=== PATIENT | female | born 1965 | race Caucasian/White ===

== ENCOUNTER → 2018-01-13 | Outpatient (REF) | payer BC ==
[2018-01-16 00:06] LABS: Lyme Disease IgG/IgM Antibodie <0.91 ISR (0.00-0.90); Lyme Disease IgM Ab Quantitati <0.80 index (0.00-0.79)
== END ==
LOC: M LAB REF 12:55
DX: A69.20 Lyme disease, unspecified (principal)

== ENCOUNTER 2018-01-30 16:05 | Inpatient (IN) | payer BC ==
[2018-01-30] MEDS ORDERED: MOM 30ML SUSPENSION UDC PO (22:00)
[2018-01-30] MEDS: GABAPENTIN 100 MG CAP PO (23:17)
[2018-01-30] MEDS: SERTRALINE HCL 25 MG TABLET PO (23:18)
[2018-01-31] MEDS: MAALOX 30 ML SUSP *UDC PO (00:18)
[2018-01-31] MEDS: ALPRAZolam 0.5 MG TAB PO (00:43)
[2018-01-31] MEDS: ACETAMINOPHEN TAB 650MG DOSE (2X325MG) PO ×2 (03:04→11:53)
[2018-01-31] MEDS: LEVOTHYROXINE 88MCG TABLET (0.088 MG) PO ×2 (06:00→06:31)
[2018-01-31] MEDS: SERTRALINE HCL 25 MG TABLET PO (09:00)
[2018-01-31] MEDS: hydrOXYzine 25 MG TAB PO (09:00)
[2018-01-31] MEDS: FLUTICASONE PROP 0.05% NASAL SPRAY 16 GM (FLONASE) (10:12)
[2018-01-31] MEDS: GABAPENTIN 100 MG CAP PO ×3 (10:13→22:32)
[2018-01-31] MEDS: LIDOCAINE 5% (LIDODERM) PATCH TD (10:13)
[2018-01-31] MEDS: OMEPRAZOLE 20 MG CAP PO (16:28)
[2018-01-31] MEDS: **NOTE PATIENT COMMENT** MISC XX (21:00)
[2018-01-31] MEDS: zolPIDEM TARTRATE 5 MG TAB PO (22:33)
[2018-02-01] MEDS: LEVOTHYROXINE 88MCG TABLET (0.088 MG) PO (05:46)
[2018-02-01] MEDS ORDERED: ENTER DRUG NAME HERE (PATIENT'S OWN MED) PO (09:00)
[2018-02-01] MEDS: OMEPRAZOLE 20 MG CAP PO (09:39)
[2018-02-01] MEDS: GABAPENTIN 100 MG CAP PO ×3 (09:39→21:54)
[2018-02-01] MEDS: hydrOXYzine 25 MG TAB PO (09:39)
[2018-02-01] MEDS: DULoxetine 30 MG CAP (CYMBALTA) PO (09:39)
[2018-02-01] MEDS: LIDOCAINE 5% (LIDODERM) PATCH TD (09:42)
[2018-02-01] MEDS: FLUTICASONE PROP 0.05% NASAL SPRAY 16 GM (FLONASE) (09:42)
[2018-02-01] MEDS: clonazePAM 1 MG TAB PO (16:30)
[2018-02-01] MEDS: **NOTE PATIENT COMMENT** MISC XX (21:00)
[2018-02-01] MEDS: zolPIDEM TARTRATE 5 MG TAB PO (21:54)
[2018-02-02] MEDS: LEVOTHYROXINE 88MCG TABLET (0.088 MG) PO (06:03)
[2018-02-02] MEDS: FLUTICASONE PROP 0.05% NASAL SPRAY 16 GM (FLONASE) (09:00)
[2018-02-02] MEDS: LIDOCAINE 5% (LIDODERM) PATCH TD (09:00)
[2018-02-02] MEDS: hydrOXYzine 25 MG TAB PO (09:15)
[2018-02-02] MEDS: DULoxetine 30 MG CAP (CYMBALTA) PO (09:15)
[2018-02-02] MEDS: OMEPRAZOLE 20 MG CAP PO (09:15)
[2018-02-02] MEDS: GABAPENTIN 100 MG CAP PO ×3 (09:15→20:51)
[2018-02-02] MEDS: LORazepam 1 MG TAB PO (16:30)
[2018-02-02] MEDS: **NOTE PATIENT COMMENT** MISC XX (21:00)
[2018-02-02] MEDS: ALPRAZolam 0.5 MG TAB PO (21:46)
[2018-02-02] MEDS: ACETAMINOPHEN TAB 650MG DOSE (2X325MG) PO (21:46)
[2018-02-03] MEDS: LEVOTHYROXINE 88MCG TABLET (0.088 MG) PO (06:17)
[2018-02-03] MEDS: DULoxetine 30 MG CAP (CYMBALTA) PO (08:02)
[2018-02-03] MEDS: GABAPENTIN 100 MG CAP PO (08:02)
[2018-02-03] MEDS: hydrOXYzine 25 MG TAB PO (08:02)
[2018-02-03] MEDS: OMEPRAZOLE 20 MG CAP PO (08:03)
[2018-02-03] MEDS: FLUTICASONE PROP 0.05% NASAL SPRAY 16 GM (FLONASE) (08:03)
[2018-02-03] MEDS: LIDOCAINE 5% (LIDODERM) PATCH TD (08:03)
[2018-02-03] MEDS ORDERED: hydrOXYzine 25 MG TAB PO (21:00)
== END 2018-02-03 13:45 | disposition home or self-care (01) | DRG 754 ==
LOC: M ED 16:05 → M ED INP 18:49 → M PSY 20:35
DX: F32.9 Major depressive disorder, single episode, unspecified (principal); F41.1 Generalized anxiety disorder; Z79.899 Other long term (current) drug therapy; Z91.040 Latex allergy status; E03.9 Hypothyroidism, unspecified; G47.00 Insomnia, unspecified; M54.5 Low back pain; G89.29 Other chronic pain; J30.9 Allergic rhinitis, unspecified; R10.9 Unspecified abdominal pain

== ENCOUNTER 2018-03-02 15:56 | Inpatient (IN) | payer BC ==
[2018-03-02 17:04] LABS: HEMATOCRIT 41.4 % (36.0-47.0); HEMOGLOBIN 14.4 g/dl (12.0-15.5); MEAN CORPUSCULAR HEMOGLOBIN 32.6 pg (27.0-33.0); MEAN CORPUSCULAR HGB CONC 34.8 g/dl (32.0-36.5); MEAN CORPUSCULAR VOLUME 93.7 fl (80.0-96.0); PLATELET COUNT, AUTOMATED 245 10^3/uL (150-450); RED BLOOD COUNT 4.42 10^6/uL (4.00-5.40); RED CELL DISTRIBUTION WIDTH 11.5 % (11.5-14.5); WHITE BLOOD COUNT 8.7 10^3/uL (4.0-10.0)
[2018-03-02 17:05] LABS: AMPHETAMINES LEVEL URINE NEGATIVE (NEGATIVE); BARBITURATES URINE NEGATIVE (NEGATIVE); BENZODIAZEPINES URINE NEGATIVE (NEGATIVE); CANNABINOIDS URINE NEGATIVE (NEGATIVE); COCAINE METABOLITE URINE NEGATIVE (NEGATIVE); METHADONE URINE NEGATIVE (NEGATIVE); OPIATES URINE NEGATIVE (NEGATIVE); PHENCYCLIDINE URINE NEGATIVE (NEGATIVE)
[2018-03-02 17:13] LABS: ALBUMIN 3.4 GM/DL (3.2-5.2); ALKALINE PHOSPHATASE 73 U/L (45-117); ALT/SGPT 42 U/L (12-78); ANION GAP 9 MEQ/L (8-16); AST/SGOT 28 U/L (7-37); BILIRUBIN,DIRECT 0.2 MG/DL (0.0-0.2); BILIRUBIN,TOTAL 0.4 MG/DL (0.2-1.0); BLOOD UREA NITROGEN 8 MG/DL (7-18); CALCIUM LEVEL 8.1 MG/DL (8.5-10.1); CARBON DIOXIDE LEVEL 26 MEQ/L (21-32); CHLORIDE LEVEL 106 MEQ/L (98-107); CREATININE FOR GFR 0.92 MG/DL (0.55-1.30); GLOMERULAR FILTRATION RATE > 60.0 (>51); GLUCOSE, FASTING 138 MG/DL (70-100); SALICYLATE LEVEL < 1.7 MG/DL (5.0-30.0); SODIUM LEVEL 141 MEQ/L (136-145); TOTAL PROTEIN 6.5 GM/DL (6.4-8.2)
[2018-03-02 17:28] LABS: ACETAMINOPHEN LEVEL < 2.0 UG/ML (10.0-30.0); ETHYL ALCOHOL (ETHANOL) < 0.003 % (0.000-0.010)
[2018-03-02] MEDS: POTASSIUM CHLORIDE 10 MEQ SR TABLET PO (17:35)
[2018-03-02] MEDS ORDERED: MOM 30ML SUSPENSION UDC PO (18:15)
[2018-03-02] MEDS: MAALOX 30 ML SUSP *UDC PO (20:27)
[2018-03-02] MEDS: traZODone 50 MG TAB PO (20:28)
[2018-03-02] MEDS: ACETAMINOPHEN TAB 650MG DOSE (2X325MG) PO (20:29)
[2018-03-03] MEDS: LEVOTHYROXINE 88MCG TABLET (0.088 MG) PO (08:53)
[2018-03-03] MEDS: GABAPENTIN 100 MG CAP PO ×3 (09:00→20:37)
[2018-03-03] MEDS ORDERED: SODIUM CHLORIDE NASAL 0.65% SPRAY BTL (OCEAN) (09:00)
[2018-03-03 10:17] LABS: ANION GAP 10 MEQ/L (8-16); BLOOD UREA NITROGEN 8 MG/DL (7-18); CALCIUM LEVEL 8.4 MG/DL (8.5-10.1); CARBON DIOXIDE LEVEL 24 MEQ/L (21-32); CHLORIDE LEVEL 109 MEQ/L (98-107); GLOMERULAR FILTRATION RATE > 60.0 (>51); GLUCOSE, FASTING 121 MG/DL (70-100); POTASSIUM SERUM 3.9 MEQ/L (3.5-5.1); SODIUM LEVEL 143 MEQ/L (136-145)
[2018-03-03] MEDS: OMEPRAZOLE 20 MG CAP PO (14:33)
[2018-03-03] MEDS: NORTRIPTYLINE 25 MG CAP PO (20:37)
[2018-03-04] MEDS: LEVOTHYROXINE 88MCG TABLET (0.088 MG) PO (06:08)
[2018-03-04] MEDS: GABAPENTIN 100 MG CAP PO (08:40)
[2018-03-04] MEDS: OMEPRAZOLE 20 MG CAP PO (08:41)
[2018-03-04 10:56] LABS: HEMATOCRIT 46.1 % (36.0-47.0); HEMOGLOBIN 16.1 g/dl (12.0-15.5); MEAN CORPUSCULAR HEMOGLOBIN 32.5 pg (27.0-33.0); MEAN CORPUSCULAR HGB CONC 34.9 g/dl (32.0-36.5); MEAN CORPUSCULAR VOLUME 93.1 fl (80.0-96.0); PLATELET COUNT, AUTOMATED 275 10^3/uL (150-450); RED BLOOD COUNT 4.95 10^6/uL (4.00-5.40); RED CELL DISTRIBUTION WIDTH 11.9 % (11.5-14.5); WHITE BLOOD COUNT 7.6 10^3/uL (4.0-10.0)
[2018-03-04 11:20] LABS: ALBUMIN 3.5 GM/DL (3.2-5.2); ALBUMIN/GLOBULIN RATIO 1.06 (1.00-1.93); ALKALINE PHOSPHATASE 79 U/L (45-117); ALT/SGPT 47 U/L (12-78); ANION GAP 8 MEQ/L (8-16); AST/SGOT 23 U/L (7-37); BILIRUBIN,TOTAL 0.3 MG/DL (0.2-1.0); BLOOD UREA NITROGEN 11 MG/DL (7-18); CALCIUM LEVEL 8.7 MG/DL (8.5-10.1); CARBON DIOXIDE LEVEL 27 MEQ/L (21-32); CHLORIDE LEVEL 106 MEQ/L (98-107); CREATININE FOR GFR 0.93 MG/DL (0.55-1.30); GLOMERULAR FILTRATION RATE > 60.0 (>51); GLUCOSE, FASTING 103 MG/DL (70-100); POTASSIUM SERUM 4.1 MEQ/L (3.5-5.1); SODIUM LEVEL 141 MEQ/L (136-145); TOTAL PROTEIN 6.8 GM/DL (6.4-8.2)
[2018-03-04] MEDS: GABAPENTIN 300 MG CAP PO ×2 (15:24→21:36)
[2018-03-04] MEDS: NORTRIPTYLINE 25 MG CAP PO (21:36)
[2018-03-05] MEDS: LEVOTHYROXINE 88MCG TABLET (0.088 MG) PO (06:09)
[2018-03-05] MEDS: OMEPRAZOLE 20 MG CAP PO (08:56)
[2018-03-05] MEDS: GABAPENTIN 300 MG CAP PO ×3 (08:56→20:31)
[2018-03-05] MEDS: MUPIROCIN 2% OINT 22 GM TUBE TOP (16:38)
[2018-03-05] MEDS: NORTRIPTYLINE 25 MG CAP PO (20:30)
[2018-03-06] MEDS: LEVOTHYROXINE 88MCG TABLET (0.088 MG) PO (06:00)
[2018-03-06] MEDS: GABAPENTIN 300 MG CAP PO ×3 (08:57→21:51)
[2018-03-06] MEDS: OMEPRAZOLE 20 MG CAP PO (08:57)
[2018-03-06] MEDS: NORTRIPTYLINE 25 MG CAP PO (21:51)
[2018-03-06] MEDS: traZODone 50 MG TAB PO (21:51)
[2018-03-07] MEDS: LEVOTHYROXINE 88MCG TABLET (0.088 MG) PO (06:50)
[2018-03-07] MEDS: OMEPRAZOLE 20 MG CAP PO (09:00)
[2018-03-07] MEDS: GABAPENTIN 300 MG CAP PO ×2 (09:14→15:50)
[2018-03-07] MEDS: MUPIROCIN 2% OINT 22 GM TUBE TOP (11:01)
== END 2018-03-07 17:00 | disposition home or self-care (01) | DRG 755 ==
LOC: M PSY 03-03 16:17 → M ED 15:56 → M ED INP 18:08 → M PSY 18:56
DX: F45.41 Pain disorder exclusively related to psychological factors (principal); F32.9 Major depressive disorder, single episode, unspecified; M79.7 Fibromyalgia; F43.23 Adjustment disorder with mixed anxiety and depressed mood; Z79.899 Other long term (current) drug therapy; Z91.040 Latex allergy status; F41.9 Anxiety disorder, unspecified; G47.00 Insomnia, unspecified; E03.9 Hypothyroidism, unspecified; J30.9 Allergic rhinitis, unspecified; E87.6 Hypokalemia; R42 Dizziness and giddiness

== ENCOUNTER 2018-04-05 11:03 | Emergency (ER) | payer BC ==
[2018-04-05 11:45] LABS: HEMATOCRIT 43.3 % (36.0-47.0); MEAN CORPUSCULAR HEMOGLOBIN 32.9 pg (27.0-33.0); MEAN CORPUSCULAR HGB CONC 34.6 g/dl (32.0-36.5); PLATELET COUNT, AUTOMATED 286 10^3/uL (150-450); RED BLOOD COUNT 4.56 10^6/uL (4.00-5.40); RED CELL DISTRIBUTION WIDTH 11.7 % (11.5-14.5); WHITE BLOOD COUNT 7.3 10^3/uL (4.0-10.0)
[2018-04-05 12:10] LABS: AMPHETAMINES LEVEL URINE NEGATIVE (NEGATIVE); BARBITURATES URINE NEGATIVE (NEGATIVE); BENZODIAZEPINES URINE NEGATIVE (NEGATIVE); CANNABINOIDS URINE NEGATIVE (NEGATIVE); COCAINE METABOLITE URINE NEGATIVE (NEGATIVE); METHADONE URINE NEGATIVE (NEGATIVE); OPIATES URINE NEGATIVE (NEGATIVE); PHENCYCLIDINE URINE NEGATIVE (NEGATIVE)
[2018-04-05 12:17] LABS: ACETAMINOPHEN LEVEL < 2.0 UG/ML (10.0-30.0); ALBUMIN 3.3 GM/DL (3.2-5.2); ALKALINE PHOSPHATASE 84 U/L (45-117); ALT/SGPT 27 U/L (12-78); ANION GAP 6 MEQ/L (8-16); AST/SGOT 19 U/L (7-37); BILIRUBIN,DIRECT 0.1 MG/DL (0.0-0.2); BILIRUBIN,TOTAL 0.5 MG/DL (0.2-1.0); BLOOD UREA NITROGEN 11 MG/DL (7-18); CALCIUM LEVEL 8.3 MG/DL (8.5-10.1); CARBON DIOXIDE LEVEL 29 MEQ/L (21-32); CHLORIDE LEVEL 106 MEQ/L (98-107); CREATININE FOR GFR 0.78 MG/DL (0.55-1.30); ETHYL ALCOHOL (ETHANOL) < 0.003 % (0.000-0.010); GLOMERULAR FILTRATION RATE > 60.0 (>51); GLUCOSE, FASTING 97 MG/DL (70-100); POTASSIUM SERUM 4.2 MEQ/L (3.5-5.1); SALICYLATE LEVEL < 1.7 MG/DL (5.0-30.0); SODIUM LEVEL 141 MEQ/L (136-145); TOTAL PROTEIN 6.6 GM/DL (6.4-8.2)
== END 2018-04-05 14:51 | disposition home or self-care (01) ==
LOC: M ED 11:03
DX: F32.9 Major depressive disorder, single episode, unspecified (principal); E07.9 Disorder of thyroid, unspecified; J30.9 Allergic rhinitis, unspecified; F41.9 Anxiety disorder, unspecified; G47.00 Insomnia, unspecified; G89.29 Other chronic pain; Z79.899 Other long term (current) drug therapy; Z91.040 Latex allergy status
CPT/HCPCS: G0480

== ENCOUNTER 2018-04-24 04:20 | Emergency (ER) | payer BC ==
[2018-04-24 05:28] LABS: HEMATOCRIT 41.5 % (36.0-47.0); HEMOGLOBIN 14.5 g/dl (12.0-15.5); MEAN CORPUSCULAR HEMOGLOBIN 32.3 pg (27.0-33.0); MEAN CORPUSCULAR HGB CONC 34.9 g/dl (32.0-36.5); MEAN CORPUSCULAR VOLUME 92.4 fl (80.0-96.0); PLATELET COUNT, AUTOMATED 305 10^3/uL (150-450); RED BLOOD COUNT 4.49 10^6/uL (4.00-5.40); RED CELL DISTRIBUTION WIDTH 11.4 % (11.5-14.5); WHITE BLOOD COUNT 13.4 10^3/uL (4.0-10.0)
[2018-04-24 05:48] LABS: AMPHETAMINES LEVEL URINE NEGATIVE (NEGATIVE); BARBITURATES URINE NEGATIVE (NEGATIVE); BENZODIAZEPINES URINE NEGATIVE (NEGATIVE); CANNABINOIDS URINE NEGATIVE (NEGATIVE); COCAINE METABOLITE URINE NEGATIVE (NEGATIVE); METHADONE URINE NEGATIVE (NEGATIVE); OPIATES URINE NEGATIVE (NEGATIVE); PHENCYCLIDINE URINE NEGATIVE (NEGATIVE)
[2018-04-24 06:04] LABS: ACETAMINOPHEN LEVEL < 2.0 UG/ML (10.0-30.0); ALBUMIN 3.4 GM/DL (3.2-5.2); ALBUMIN/GLOBULIN RATIO 1.13 (1.00-1.93); ALKALINE PHOSPHATASE 98 U/L (45-117); ALT/SGPT 19 U/L (12-78); ANION GAP 9 MEQ/L (8-16); AST/SGOT 14 U/L (7-37); BILIRUBIN,DIRECT 0.1 MG/DL (0.0-0.2); BILIRUBIN,TOTAL 0.6 MG/DL (0.2-1.0); BLOOD UREA NITROGEN 6 MG/DL (7-18); CALCIUM LEVEL 8.2 MG/DL (8.5-10.1); CARBON DIOXIDE LEVEL 25 MEQ/L (21-32); CHLORIDE LEVEL 107 MEQ/L (98-107); CREATININE FOR GFR 0.75 MG/DL (0.55-1.30); ETHYL ALCOHOL (ETHANOL) < 0.003 % (0.000-0.010); GLOMERULAR FILTRATION RATE > 60.0 (>51); GLUCOSE, FASTING 109 MG/DL (70-100); POTASSIUM SERUM 3.3 MEQ/L (3.5-5.1); SALICYLATE LEVEL < 1.7 MG/DL (5.0-30.0); SODIUM LEVEL 141 MEQ/L (136-145); TOTAL PROTEIN 6.4 GM/DL (6.4-8.2)
== END 2018-04-24 08:27 | disposition home or self-care (01) ==
LOC: M ED 04:20
DX: G47.00 Insomnia, unspecified (principal); F32.9 Major depressive disorder, single episode, unspecified; F99 Mental disorder, not otherwise specified; Z91.040 Latex allergy status
CPT/HCPCS: 93005

== ENCOUNTER 2018-04-26 17:20 | Inpatient (IN) | payer OTHER, BC ==
[2018-04-26 18:03] LABS: HEMATOCRIT 42.4 % (36.0-47.0); HEMOGLOBIN 15.1 g/dl (12.0-15.5); MEAN CORPUSCULAR HEMOGLOBIN 32.5 pg (27.0-33.0); MEAN CORPUSCULAR HGB CONC 35.6 g/dl (32.0-36.5); MEAN CORPUSCULAR VOLUME 91.2 fl (80.0-96.0); PLATELET COUNT, AUTOMATED 320 10^3/uL (150-450); RED BLOOD COUNT 4.65 10^6/uL (4.00-5.40); RED CELL DISTRIBUTION WIDTH 11.4 % (11.5-14.5); WHITE BLOOD COUNT 10.9 10^3/uL (4.0-10.0)
[2018-04-26 18:49] LABS: CALCIUM OXALATE CRYSTALS RFX SMALL; KETONE, URINE AUTO RFX 1+ mg/dL (NEGATIVE); MUCUS, URINE RFX LARGE (NEGATIVE); NITRITE, URINE AUTO RFX NEGATIVE (NEGATIVE); RBC, URINE AUTO RFX 3 /HPF (0-3); SPECIFIC GRAVITY UR AUTO RFX 1.026 (1.002-1.035); SQUAM EPITHELIAL CELL UR AURFX 11 /HPF (0-6)
[2018-04-26 19:23] LABS: AMPHETAMINES LEVEL URINE NEGATIVE (NEGATIVE); BARBITURATES URINE NEGATIVE (NEGATIVE); BENZODIAZEPINES URINE NEGATIVE (NEGATIVE); CANNABINOIDS URINE NEGATIVE (NEGATIVE); COCAINE METABOLITE URINE NEGATIVE (NEGATIVE); METHADONE URINE NEGATIVE (NEGATIVE); OPIATES URINE NEGATIVE (NEGATIVE); PHENCYCLIDINE URINE NEGATIVE (NEGATIVE)
[2018-04-26 19:26] LABS: ACETAMINOPHEN LEVEL < 2.0 UG/ML (10.0-30.0); ALBUMIN 3.3 GM/DL (3.2-5.2); ALBUMIN/GLOBULIN RATIO 1.03 (1.00-1.93); ALKALINE PHOSPHATASE 92 U/L (45-117); ALT/SGPT 20 U/L (12-78); ANION GAP 16 MEQ/L (8-16); AST/SGOT 24 U/L (7-37); BILIRUBIN,DIRECT 0.1 MG/DL (0.0-0.2); BILIRUBIN,TOTAL 0.3 MG/DL (0.2-1.0); BLOOD UREA NITROGEN 12 MG/DL (7-18); CALCIUM LEVEL 8.6 MG/DL (8.5-10.1); CARBON DIOXIDE LEVEL 21 MEQ/L (21-32); CHLORIDE LEVEL 106 MEQ/L (98-107); CREATININE FOR GFR 0.88 MG/DL (0.55-1.30); ETHYL ALCOHOL (ETHANOL) < 0.003 % (0.000-0.010); GLOMERULAR FILTRATION RATE > 60.0 (>51); GLUCOSE, FASTING 140 MG/DL (70-100); POTASSIUM SERUM 3.5 MEQ/L (3.5-5.1); SALICYLATE LEVEL < 1.7 MG/DL (5.0-30.0); SODIUM LEVEL 143 MEQ/L (136-145); TOTAL PROTEIN 6.5 GM/DL (6.4-8.2)
[2018-04-26 19:44] LABS: LEUKOCYTE ESTERASE UR AUTO RFX 3+ (NEGATIVE); WBC, URINE AUTO RFX 48 /HPF (0-3)
[2018-04-26] MEDS ORDERED: ACETAMINOPHEN TAB 650MG DOSE (2X325MG) PO (21:15)
[2018-04-26] MEDS ORDERED: MAALOX 30 ML SUSP *UDC PO (21:15)
[2018-04-26] MEDS ORDERED: MOM 30ML SUSPENSION UDC PO (21:15)
[2018-04-26] MEDS: NITROFURANTOIN (MACROBID) 100 MG CAP PO (21:25)
[2018-04-26] MEDS: zolPIDEM TARTRATE 10MG TAB PO (23:36)
[2018-04-27] MEDS: LEVOTHYROXINE 88MCG TABLET (0.088 MG) PO (06:18)
[2018-04-27] MEDS: NITROFURANTOIN (MACROBID) 100 MG CAP PO ×2 (09:00→23:12)
[2018-04-27] MEDS ORDERED: OLANZapine ORAL DISINTEGRATING TAB 5MG As Ordered (12:26)
[2018-04-27] MEDS: OLANZapine ORAL DISINTEGRATING TAB 5MG PO (12:28)
[2018-04-27] MEDS: PALIPERIDONE 3 MG ER TAB (INVEGA) PO (23:11)
[2018-04-28] MEDS: OLANZapine ORAL DISINTEGRATING TAB 5MG PO ×2 (03:04→22:00)
[2018-04-28] MEDS: LEVOTHYROXINE 88MCG TABLET (0.088 MG) PO (06:19)
[2018-04-28 07:40] LABS: HEMATOCRIT 43.3 % (36.0-47.0); HEMOGLOBIN 14.8 g/dl (12.0-15.5); MEAN CORPUSCULAR HEMOGLOBIN 32.4 pg (27.0-33.0); MEAN CORPUSCULAR HGB CONC 34.2 g/dl (32.0-36.5); MEAN CORPUSCULAR VOLUME 94.7 fl (80.0-96.0); PLATELET COUNT, AUTOMATED 306 10^3/uL (150-450); RED BLOOD COUNT 4.57 10^6/uL (4.00-5.40); RED CELL DISTRIBUTION WIDTH 11.9 % (11.5-14.5); WHITE BLOOD COUNT 6.8 10^3/uL (4.0-10.0)
[2018-04-28] MEDS: NITROFURANTOIN (MACROBID) 100 MG CAP PO ×3 (08:55→22:00)
[2018-04-28] MEDS: PALIPERIDONE 3 MG ER TAB (INVEGA) PO ×2 (08:55→12:03)
[2018-04-28] MEDS: PALIPERIDONE 6 MG ER TAB (INVEGA) PO (22:00)
[2018-04-29] MEDS: LEVOTHYROXINE 88MCG TABLET (0.088 MG) PO (06:16)
[2018-04-29] MEDS: PALIPERIDONE 3 MG ER TAB (INVEGA) PO (09:47)
[2018-04-29] MEDS: NITROFURANTOIN (MACROBID) 100 MG CAP PO ×2 (09:47→20:25)
[2018-04-29] MEDS: PALIPERIDONE 6 MG ER TAB (INVEGA) PO (20:25)
[2018-04-29] MEDS: OLANZapine ORAL DISINTEGRATING TAB 5MG PO (20:26)
[2018-04-30] MEDS: LEVOTHYROXINE 88MCG TABLET (0.088 MG) PO (06:26)
[2018-04-30] MEDS: PALIPERIDONE 3 MG ER TAB (INVEGA) PO ×2 (09:00→20:29)
[2018-04-30] MEDS: NITROFURANTOIN (MACROBID) 100 MG CAP PO ×2 (09:00→20:29)
[2018-04-30 12:42] LABS: BEDSIDE GLUCOSE 178 MG/DL (70-105)
[2018-05-01] MEDS: LEVOTHYROXINE 88MCG TABLET (0.088 MG) PO (06:14)
[2018-05-01] MEDS: NITROFURANTOIN (MACROBID) 100 MG CAP PO ×2 (09:37→20:31)
[2018-05-01] MEDS: PALIPERIDONE 3 MG ER TAB (INVEGA) PO (20:31)
[2018-05-01] MEDS ORDERED: ENTER DRUG NAME HERE (PATIENT'S OWN MED) (21:00)
[2018-05-01] MEDS: OXYMETAZOLINE NASAL SPRAY (AFRIN) (21:11)
[2018-05-02] MEDS: LEVOTHYROXINE 88MCG TABLET (0.088 MG) PO (06:42)
[2018-05-02] MEDS: OXYMETAZOLINE NASAL SPRAY (AFRIN) ×2 (08:25→20:32)
[2018-05-02] MEDS: NITROFURANTOIN (MACROBID) 100 MG CAP PO ×2 (08:25→20:32)
[2018-05-02] MEDS: DOXEPIN 25 MG CAP PO (20:32)
[2018-05-02] MEDS: PALIPERIDONE 6 MG ER TAB (INVEGA) PO (20:32)
[2018-05-03] MEDS: LEVOTHYROXINE 88MCG TABLET (0.088 MG) PO (06:09)
[2018-05-03] MEDS: OXYMETAZOLINE NASAL SPRAY (AFRIN) ×2 (09:18→20:45)
[2018-05-03] MEDS: NITROFURANTOIN (MACROBID) 100 MG CAP PO ×2 (09:18→20:44)
[2018-05-03] MEDS ORDERED: guaiFENesin SYRUP 200 MG/10 ML UDC PO (11:45)
[2018-05-03] MEDS: DOXEPIN 25 MG CAP PO (20:44)
[2018-05-03] MEDS: PALIPERIDONE 6 MG ER TAB (INVEGA) PO (20:45)
[2018-05-03] MEDS: PALIPERIDONE PALMITATE 234 MG/1.5 ML INJ (INVEGA SUSTENNA)(J2426) IM (21:05)
[2018-05-04] MEDS: LEVOTHYROXINE 88MCG TABLET (0.088 MG) PO (06:16)
[2018-05-04] MEDS: OXYMETAZOLINE NASAL SPRAY (AFRIN) ×2 (09:34→21:11)
[2018-05-04] MEDS: PALIPERIDONE PALMITATE 234 MG/1.5 ML INJ (INVEGA SUSTENNA)(J2426) IM (12:25)
[2018-05-04] MEDS: DOXEPIN 25 MG CAP PO (21:11)
[2018-05-04] MEDS: PALIPERIDONE 6 MG ER TAB (INVEGA) PO (21:11)
[2018-05-05] MEDS: LEVOTHYROXINE 88MCG TABLET (0.088 MG) PO (06:08)
[2018-05-05] MEDS: OXYMETAZOLINE NASAL SPRAY (AFRIN) ×2 (08:34→22:34)
[2018-05-05] MEDS: OLANZapine ORAL DISINTEGRATING TAB 5MG PO (22:34)
[2018-05-06] MEDS: LEVOTHYROXINE 88MCG TABLET (0.088 MG) PO (06:00)
[2018-05-06] MEDS: OXYMETAZOLINE NASAL SPRAY (AFRIN) ×3 (08:56→20:59)
[2018-05-07] MEDS: LEVOTHYROXINE 88MCG TABLET (0.088 MG) PO (06:17)
[2018-05-07] MEDS: OXYMETAZOLINE NASAL SPRAY (AFRIN) ×2 (08:04→21:22)
[2018-05-08] MEDS: LEVOTHYROXINE 88MCG TABLET (0.088 MG) PO (06:25)
[2018-05-08] MEDS: OXYMETAZOLINE NASAL SPRAY (AFRIN) ×2 (08:34→21:16)
[2018-05-08] MEDS: PALIPERIDONE PALMITATE 156 MG/1ML INJ(INVEGA SUSTENNA)(J2426) IM (10:38)
[2018-05-08] MEDS: OLANZapine ORAL DISINTEGRATING TAB 5MG PO (21:16)
[2018-05-09] MEDS: LEVOTHYROXINE 88MCG TABLET (0.088 MG) PO (06:01)
[2018-05-09] MEDS: OXYMETAZOLINE NASAL SPRAY (AFRIN) (09:48)
== END 2018-05-09 15:55 | disposition home or self-care (01) | DRG 750 ==
LOC: M ED 17:20 → M ED INP 21:10 → M PSY 23:15
DX: F25.0 Schizoaffective disorder, bipolar type (principal); E03.9 Hypothyroidism, unspecified; F42.9 Obsessive-compulsive disorder, unspecified; Z91.040 Latex allergy status; G47.00 Insomnia, unspecified; G89.29 Other chronic pain; F41.9 Anxiety disorder, unspecified; M54.5 Low back pain; J30.9 Allergic rhinitis, unspecified; D72.829 Elevated white blood cell count, unspecified; Z79.899 Other long term (current) drug therapy

== ENCOUNTER 2018-07-20 16:31 | Inpatient (IN) | payer BC ==
[~2018-07-20] VITALS: Ht 167.6 cm; Wt 56.6 kg
[~2018-07-20 16:31] MED LIST: ALBU17IN INH; ALPR0.5T3 PO; AMBI10TA PO; AMBI5TAB PO; BENA25CA4 PO; DULO30CA PO; EPIP0.3I2 IM; GABA-1171 PO; GABA-843 PO; HYDR-3363 PO; INVE234I IM; LEVO88TA3; LEVO88TA3 PO; LYRI75CA; MOME50SP2 NARES; MOTR200T44 PO; NORT25CA2 PO; PATIENT COMMENTS; PERCOCET PO; SERT25TA PO; SERT25TA88 PO; TRAZO50TA PO; ZOLP12.515 PO; ZYPR5TAB2 PO; [UNRECOGNIZED DRUG - CODE] PO; [UNRECOGNIZED DRUG - OTHER] OR; [UNRECOGNIZED DRUG - REMARK] OR; allergy shots; epipen
[2018-07-20 17:23] LABS: HEMATOCRIT 47.6 % (36.0-47.0); HEMOGLOBIN 15.7 g/dl (12.0-15.5); MEAN CORPUSCULAR HEMOGLOBIN 31.4 pg (27.0-33.0); MEAN CORPUSCULAR VOLUME 95.2 fl (80.0-96.0); PLATELET COUNT, AUTOMATED 291 10^3/uL (150-450); WHITE BLOOD COUNT 9.1 10^3/uL (4.0-10.0)
[2018-07-20 17:48] LABS: HCG, SERUM QUALITATIVE NEGATIVE (NEGATIVE)
[2018-07-20 17:55] LABS: AMPHETAMINES LEVEL URINE NEGATIVE (NEGATIVE); BARBITURATES URINE NEGATIVE (NEGATIVE); BENZODIAZEPINES URINE NEGATIVE (NEGATIVE); CANNABINOIDS URINE NEGATIVE (NEGATIVE); COCAINE METABOLITE URINE NEGATIVE (NEGATIVE); METHADONE URINE NEGATIVE (NEGATIVE); OPIATES URINE NEGATIVE (NEGATIVE); PHENCYCLIDINE URINE NEGATIVE (NEGATIVE)
[2018-07-20 18:04] LABS: ACETAMINOPHEN LEVEL < 2.0 UG/ML (10.0-30.0); ALBUMIN 3.6 GM/DL (3.2-5.2); ALT/SGPT 22 U/L (12-78); BILIRUBIN,DIRECT 0.1 MG/DL (0.0-0.2); BILIRUBIN,TOTAL 0.3 MG/DL (0.2-1.0); BLOOD UREA NITROGEN 12 MG/DL (7-18); CALCIUM LEVEL 8.6 MG/DL (8.5-10.1); CARBON DIOXIDE LEVEL 26 MEQ/L (21-32); CHLORIDE LEVEL 104 MEQ/L (98-107); CREATININE FOR GFR 0.84 MG/DL (0.55-1.30); ETHYL ALCOHOL (ETHANOL) < 0.003 % (0.000-0.010); GLOMERULAR FILTRATION RATE > 60.0 (>51); GLUCOSE, FASTING 103 MG/DL (70-100); SALICYLATE LEVEL < 1.7 MG/DL (5.0-30.0); SODIUM LEVEL 140 MEQ/L (136-145); TOTAL PROTEIN 6.9 GM/DL (6.4-8.2)
[2018-07-20] MEDS ORDERED: LORazepam 1 MG TAB PO STA (19:34)
[2018-07-20] MEDS ORDERED: INVE234I IM (19:34)
[2018-07-20] MEDS ORDERED: MAALOX 30 ML SUSP *UDC PO PRN (20:30)
[2018-07-20] MEDS ORDERED: ACETAMINOPHEN TAB 650MG DOSE (2X325MG) PO PRN (20:30)
[2018-07-20] MEDS: SERTRALINE HCL 25 MG TABLET PO SCH (21:00)
[2018-07-20] MEDS ORDERED: ARIPiprazole 2 MG TAB PO SCH (21:00)
[2018-07-20 23:20] VITALS: BP 95/67
--- NOTE | 2018-07-21 09:47 | HPEPDOC ---
[facility] Medical History & Physical Date of Admission Jul 20, 2018 History and Physical PCP: Dr Patiño ATTENDING: Dr. Georgina Paul HPI: 53yoF admitted to [facility] for unspecified psychotic disorder, being medically examined today. No acute medical complaints today. Denies any fevers, chills, weakness, fatigue, PACK, CP, SOB, cough, palpitations, abdominal pain, N/V/D or changes in bowel or bladder habits PMHx: Depression Anxiety Insomnia Chronic pain Chronic back pain Hypothyroid Allergic rhinitis PSHX: Hysterectomy Cholecystectomy, history of chronic abdominal pain since surgery. Thyroid surgery Colonoscopy 12/06/17. SOCHX: Resides in: [facility] Marital Status: Kids: 1 Employment: Unemployed Tobacco use: Denies ETOH: Denies Illicit Drugs: Denies IV Drug Use: Denies Tattoos done unprofessionally: Denies FAMHX: Mother: Alive, DM Father: Alive, DM, colon cancer Siblings: 2 brothers, one sister Alive, well Children: Alive, well Unexpected deaths due to medical reasons: None. PE: GEN: 53 yo F, appears stated age. Well-nourished, well developed. No acute distress. Alert and oriented x 3. Flat affect, avoids eye contact. HEENT: Normocephalic, atraumatic. Pupils are equal, round, and reactive to light. Extraocular movements are intact. No nystagmus appreciated. Sclera are nonicteric. Conjunctiva without injection. Nose midline. Nasal turbinates without bogginess. EACs both patent BL. TMs both visualized and casey with good cone of light, no bulging or erythema. No facial asymmetry. Moist mucous membranes. Dentition fair. Pharynx pink and moist, no cobblestoning. Neck supple, trachea midline. No lymphadenopathy or thyromegaly appreciated. CHEST: Regular rate and rhythm, +S1, +S2 LUNGS: Clear to auscultation bilaterally. No wheezes, rales, or rhonchi. Breathing appears symmetric and easy. Patient is speaking in full sentences. No accessory muscle use. ABD: Round, soft, non-tender, non-distended. +Bowel sounds throughout. No rebound or guarding. No costovertebral angle tenderness. EXT: Pulses 2+ bilaterally dorsalis pedis and radial. No lower extremity edema appreciated. SKIN: Railroad, dry, warm. Capillary refill <2sec. No rashes. NEURO: Alert and oriented x 3. Cranial nerves III-XII are intact. No focal deficits appreciated. EKG: SINUS TACHYCARDIA ABNORMAL RHYTHM ECG NSTTW ABNORMALITY INCREASED RATE 04/24/18 Electronically Signed On 04-27-2018 14:03:19 EDT by Jenifer Vargas A&P: 53yoF admitted to [facility] for unspecified psychotic disorder, 1. Psych. Plan per Psychiatry. EKG on file. 2.Hypothyroid. Continue Synthroid 88 g daily. TSH is noted within normal limits. 4. Follow up with PCP on discharge. 5. Staff member Angeles MASTERSON present throughout exam. Vital Signs Vital Signs Date Time Temp Pulse Resp B/P (MAP) Pulse Ox O2 Delivery O2 Flow Rate FiO2 07/20/18 23:20 98.7 103 14 95/67 (76) 97 Room Air Laboratory Data Labs 24H Laboratory Tests 2 07/20/18 17:05: Nucleated Red Blood Cells % (auto) 0.0, Anion Gap 10, Glomerular Filtration Rate > 60.0, Calcium Level 8.6, Aspartate Amino Transf (AST/SGOT) 18, Alanine Aminotransferase (ALT/SGPT) 22, Alkaline Phosphatase 87, Total Bilirubin 0.3, Direct Bilirubin 0.1, Total Protein 6.9, Albumin 3.6, Albumin/Globulin Ratio 1.09, Thyroid Stimulating Hormone (TSH) 2.330, Human Chorionic Gonadotropin, Qual NEGATIVE, Salicylates Level < 1.7L, Urine Amphetamines Screen NEGATIVE, Urine Benzodiazepines Screen NEGATIVE, Urine Opiates Screen NEGATIVE, Urine Methadone Screen NEGATIVE, Acetaminophen Level < 2.0L, Urine Barbiturates Screen NEGATIVE, Urine Phencyclidine Screen NEGATIVE, Urine Cocaine Metabolite Screen NEGATIVE, Urine Cannabinoids Screen NEGATIVE, Ethyl Alcohol Level < 0.003 CBC/BMP Laboratory Tests 07/20/18 17:05 Red Blood Count 5.00, Mean Corpuscular Volume 95.2, Mean Corpuscular Hemoglobin 31.4, Mean Corpuscular Hemoglobin Concent 33.0, Red Cell Distribution Width 11.9 Home Medications Scheduled Levothyroxine Sodium (Synthroid) 88 Mcg Tab, 88 MCG PO DAILY Paliperidone Palmitate (Invega Sustenna) 234 Mg/1.5 Ml Inj, 234 MG IM QMONTH Allergies Coded Allergies: Latex (Verified Allergy, Unknown, ?, 04/04/14) Leelee Whipple Jul 21, 2018 09:47
[2018-07-21] MEDS: LEVOTHYROXINE 88MCG TABLET (0.088 MG) PO SCH (11:12)
--- NOTE | 2018-07-21 11:21 | MHHPEPDOC ---
General Date Of Admission: Jul 20, 2018 Legal Status: 9.39 Chief Complaint "I was just looking at the water." History of Present Illness HISTORY OF THE PRESENT ILLNESS: Patient is a 53 -year-old , female, with a history of schizoaffective d/o and multiple admissions [facility] d/c 05/09/18 after 2wk stay who was brought to ED by [employer] that were called by the pt's mother b/c her bother saw her standing on a bridge and place one foot over the railing. [employer] found pt on the the bridge and per ED she told them she was suicidal. When pt arrived to the ED she denied SI/HI and stated "I was just looking at the water." Pt also reported by family to have recently told her that she had saved some money she was planning on leaving him. Pt's family believe that pt is struggling due to loss of job earlier this year causing finances to be limited for Mariah. Pt seen and appears improved from last admission especially regarding anxiety and psychosis. Does appear very flat but she states she feels good although notices that her emotions are "very mellow." States her family are concerned and they are considering changing her to abilify [facility] outpatient due to it. Pt has tried abilify in the past which has shown to not be beneficial for dunia/psychosis so would not recommend this but rather a decrease in her invega sustenna monthly dose to 156mg which pt agrees may be beneficial as she does feel her current med is beneficial. Denies depression and anxiety and states that student development specialist asked her about when she was last suicidal and she told them of time prior to her last admission. Denies current SI/HI and again states she was just trying to look at the water in the park. States her family watch her every move which she finds annoying. States she saved money to help her with bills no as an inheritance. States her got a new job and finances have been better. Agreeable to trying zoloft in conjunction with invega sustenna to see if combination beneficial for mood, flat affect, depression. Denies SI/HI, hallucinations, delusions. Feels safe here. Psychiatric Review of Systems Depression (2 or more weeks): depressed mood, feelings of excess/guilt (guilt), suicidal thoughts Dunia (4 or more days of): denies Psychosis: denies PTSD: denies Anxiety: gen/non-specific anxiety, situational anxiety, stressor related anxiety, panic attacks Past Psychiatric History Previous Psychiatric Diagnosis: schizoaffective d/o with dunia and psychosis Previous Psychiatric Admissions: [facility] 03/07/18 and 05/09/18 for SI Suicide Attempts: denies Psychiatric Follow-[facility]: [facility] Psychiatric medications: invega sustenna, zoloft Past Medical History Medical Problems Medical Problems Hypothyroidism Head Injury: No Seizures: No Hospitalizations: Yes Surgeries: Gallbladder removed, appendectomy, thyroidectomy, hysterectomy, C- section Head Injury: No Seizures: No Hospitalizations: Yes Surgeries: Yes Family Medical/Psychiatric HX Medical Problems Medical Problems Hypertension, diabetes Psychiatric Disorders: Brother and sister, stayed at [facility] but only for one day/night Psychiatric Disorders: Yes Addiction: No Suicide Attemps/Completions: No Psychiatric Disorders: Yes Addiction: No Suicide Attemps/Completions: No Addiction History denies Social History Childhood: As per previous documents: "Chichi stated she was a "happy camper". She reports that she had a very good life and a very loving home. She reports that her father did drink on the weekends but was not an alcoholic. She reports that he was "salvador" but that he was never abusive." She has siblings. Abuse/Trauma: Denies Current Living Situation: Lives with Education: College education. Employment: Unemployed, her is employed Social Support: Her Legal: Denies Marital: /common law, has lived with his sob for 34 years and she has a 28 year old child Mental Status Examination General Appearance: unkempt, disheveled, appears stated age, hospital scubs/clothing Build: average Demeanor: average, guarded Eye Contact: average Activity: average Behavior: cooperative Speech: clear, spontaneous, normal volume, reg/rate,rhythm,volume Mood: euthymic Mood "good" Affect: constricted, flat, incongruent Thought Process: logical/linear, concrete, depressed, intact Thought Content (Delusions): none reported, denies SI, HI, AVH Thought Content (Other): guarded Thought Content (Aggressive): none reported Perception (Hallucinations): none reported Perception (Other): none reported Cognition (Impairment of): none reported Cognition(Intelligence Est.): average Oriented: Awake, Alert, Oriented times three Insight: poor Judgment: Poor Psychosis: Denies Diagnoses Schizoaffective d/o - depressed Generalized Anxiety D/o Assessment Pt admitted for concerns of suicidality which pt denies. Pt states that she's doing well with her current med although she and her family notice she is too "mellow." She agrees to restart zoloft to see if in combination it is beneficial for her flat affect and mood. Just received invega sustenna 234mg im 07/08/18. Would recommend invega sustenna 156mg im for her next administration to see if it improves pt's flat affect. Pt does appear improved from last admission. She denies current SI/HI, hallucinations, delusions. Feels safe here. Initial Treatment Plan 1. Patient was admitted on a 9.39 status. 2. Complete history was obtained. 3. With patients permission, family will be contacted and database will be expanded. 4. Patients medication regimen will be reviewed and changed accordingly. 5. Patient will be provided with protected environment. 6. Patient will be treated with individual, group, and milieu therapies. 7. Patient will receive supportive psych-education. 8. Discharge planning will commence immediately. 9. Outpatient follow-up treatment will be strongly recommended. 10. The initial treatment plan will focus initially on: * Depression. * Risk for suicide. * Substance abuse. 11. received invega sustenna 234mg im 07/08/18, start zoloft 25mg daily for mood ESTIMATED LENGTH OF STAY: 5-7 DAYS. TIME SPENT COUNSELING AND COORDINATING INITIAL CARE: 60 minutes. Vital Signs Vital Signs Date Time Temp Pulse Resp B/P (MAP) Pulse Ox O2 Delivery O2 Flow Rate FiO2 07/20/18 23:20 98.7 103 14 95/67 (76) 97 Room Air Laboratory Data 24H Labs Laboratory Tests 2 07/20/18 17:05: Nucleated Red Blood Cells % (auto) 0.0, Anion Gap 10, Glomerular Filtration Rate > 60.0, Calcium Level 8.6, Aspartate Amino Transf (AST/SGOT) 18, Alanine Aminotransferase (ALT/SGPT) 22, Alkaline Phosphatase 87, Total Bilirubin 0.3, Direct Bilirubin 0.1, Total Protein 6.9, Albumin 3.6, Albumin/Globulin Ratio 1.09, Thyroid Stimulating Hormone (TSH) 2.330, Human Chorionic Gonadotropin, Qual NEGATIVE, Salicylates Level < 1.7L, Urine Amphetamines Screen NEGATIVE, U rine Benzodiazepines Screen NEGATIVE, Urine Opiates Screen NEGATIVE, Urine Methadone Screen NEGATIVE, Acetaminophen Level < 2.0L, Urine Barbiturates Screen NEGATIVE, Urine Phencyclidine Screen NEGATIVE, Urine Cocaine Metabolite Screen NEGATIVE, Urine Cannabinoids Screen NEGATIVE, Ethyl Alcohol Level < 0.003 CBC/BMP Laboratory Tests 07/20/18 17:05 Red Blood Count 5.00, Mean Corpuscular Volume 95.2, Mean Corpuscular Hemoglobin 31.4, Mean Corpuscular Hemoglobin Concent 33.0, Red Cell Distribution Width 11.9 Medications Scheduled Levothyroxine Sodium (Synthroid) 88 Mcg Tab, 88 MCG PO DAILY, (Reported) Paliperidone Palmitate (Invega Sustenna) 234 Mg/1.5 Ml Inj, 234 MG IM QMONTH, (Reported) Allergies Coded Allergies: Latex (Verified Allergy, Unknown, ?, 04/04/14) RADHA HARP DO Jul 21, 2018 11:21 am
[2018-07-21 13:35] LABS: FREE THYROXINE INDEX 4.4 % (1.3-4.8); T UPTAKE 37 % (30-39); THYROXINE (T4) 11.9 UG/DL (4.5-12.0)
[2018-07-21 18:00] VITALS: BP 116/67
[2018-07-21] MEDS: traZODone 50 MG TAB PO PRN (20:43)
[2018-07-21] MEDS: SERTRALINE HCL 25 MG TABLET PO SCH (20:43)
[2018-07-22] MEDS: LEVOTHYROXINE 88MCG TABLET (0.088 MG) PO SCH (06:03)
[2018-07-22 06:47] VITALS: BP 144/75
--- NOTE | 2018-07-22 09:46 | MHIPNPDOC ---
[facility] Progress Note Progress Note DATE OF SERVICE: 07/22/18 HISTORY: Patient is a 53 -year-old , female, with a history of schizoaffective d/o and multiple admissions [facility] last d/c 05/09/18 after 2wk stay who was brought to ED by [facility] that were called by the pt's mother b/c her bother saw her standing on a bridge and place one foot over the railing. [facility] found pt on the the bridge and per ED she told them she was suicidal. When pt arrived to the ED she denied SI/HI and stated "I was just looking at the water." Pt also reported by family to have recently told her that she had saved some money she was planning on leaving him. Pt's family believe that pt is struggling due to loss of job earlier this year causing finances to be limited for Mariah. Pt seen and appears improved from last admission especially regarding anxiety and psychosis. Does appear very flat but she states she feels good although notices that her emotions are "very mellow." States her family are concerned and they are considering changing her to abilify [facility] outpatient due to it. Pt has tried abilify in the past which has shown to not be beneficial for dunia/psychosis so would not recommend this but rather a decrease in her invega sustenna monthly dose to 156mg which pt agrees may be beneficial as she does feel her current med is beneficial. Denies depression and anxiety and states that rating specialist asked her about when she was last suicidal and she told them of time prior to her last admission. Denies current SI/HI and again states she was just trying to look at the water in the park. States her family watch her every move which she finds annoying. States she saved money to help her with bills no as an inheritance. States her got a new job and finances have been better. Agreeable to trying zoloft in conjunction with invega sustenna to see if combination beneficial for mood, flat affect, depression. Denies SI/HI, hallucinations, delusions. Feels safe here. VITAL SIGNS: See below. NEW TEST RESULTS: See below. CURRENT MEDICATIONS: See below. MENTAL STATUS EXAMINATION: General Appearance: unkempt, disheveled, appears stated age, hospital scrubs/clothing Build: average Demeanor: average, guarded Eye Contact: average Activity: average Behavior: cooperative Speech: clear, spontaneous, normal volume, reg/rate,rhythm,volume Mood: euthymic Mood "foggy" Affect: constricted, flat, incongruent Thought Process: logical/linear, concrete, depressed, intact Thought Content (Delusions): none reported, denies SI, HI, AVH Thought Content (Other): guarded Thought Content (Aggressive): none reported Perception (Hallucinations): none reported Perception (Other): none reported Cognition (Impairment of): none reported Cognition(Intelligence Est.): average Oriented: Awake, Alert, Oriented times three Insight: poor Judgment: Poor Psychosis: Denies DIAGNOSES: Schizoaffective d/o - depressed Generalized Anxiety D/o ASSESSMENT:Pt seen and states "I feel like I'm in a different realm." Admits she didn't sleep well last night as her roommate snores which is why she may feel "foggy" today. Continues to endorse anhedonia she believes is due to invega which I agree and would recomment invega sustenna 156mg im for her next administration to see if it improves pt's flat affect. Pt states that she's tolerating zoloft but doesn't notice any affects from the medicine yet and is waiting for it to start to be therapeutic. Continues to deny SI, engaging in possibly risky behavior ("stepping over bridge railing to see water, sitting on window sill to get air") and believes her family don't trust her and are way to concerned for her, will always believe she is a risk to herself. Pt does appear improved from last admission. She denies current SI/HI, hallucinations, de lusions. Feels safe here. MANAGEMENT PLAN: continue current treatment plan. Medications: invega sustenna 234mg im 07/08/18 zoloft 25mg daily for mood TIME SPENT: 30 minutes. Vital Signs Vital Signs Date Time Temp Pulse Resp B/P (MAP) Pulse Ox O2 Delivery O2 Flow Rate FiO2 07/22/18 06:47 97.2 100 16 144/75 (98) 07/20/18 23:20 97 Room Air Current Medications Current Medications Acetaminophen (Tylenol Tab) 650 mg Q6HP PRN PO HEADACHE or DISCOMFORT; Start 07/20/18 at 20:30 Al Hydrox/Mg Hydrox/Simethicone (Mylanta) 30 ml Q4HP PRN PO HEARTBURN/INDIGESTION; Start 07/20/18 at 20:30 Aripiprazole (AbiLIFY) 2 mg QHS PO Last administered on 07/20/18at 21:00; Start 07/20/18 at 21:00; Stop 07/21/18 at 11:22; Status DC Home Med (Med Rec Complete!) ASDIRECTED XX ; Start 07/20/18 at 19:45; Stop 07/20/18 at 19:45; Status DC Levothyroxine Sodium (Synthroid) 88 mcg DAILY@0600 PO Last administered on 07/22/18at 06:03; Start 07/21/18 at 06:00 Lorazepam (Ativan) 1 mg STAT STAT PO Last administered on 07/20/18at 19:34; Start 07/20/18 at 19:34; Stop 07/20/18 at 19:35; Status DC Magnesium Hydroxide (Milk Of Magnesia) 30 ml DAILYPRN PRN PO CONSTIPATION; Sta rt 07/20/18 at 20:30 Sertraline HCl (Zoloft) 25 mg QHS PO Last administered on 07/21/18at 20:43; Start 07/20/18 at 21:00 Trazodone HCl (Desyrel) 50 mg QHSP PRN PO INSOMNIA Last administered on 07/21/18at 20:43; Start 07/20/18 at 20:30 Allergies Coded Allergies: Latex (Verified Allergy, Unknown, ?, 04/04/14) RADHA HARP DO Jul 22, 2018 9:46 am
[2018-07-22 18:10] VITALS: BP 95/66
[2018-07-22] MEDS: traZODone 50 MG TAB PO PRN (21:16)
[2018-07-22] MEDS: SERTRALINE HCL 25 MG TABLET PO SCH (21:16)
[2018-07-23 06:34] VITALS: BP 114/69
[2018-07-23] MEDS: LEVOTHYROXINE 88MCG TABLET (0.088 MG) PO SCH (06:55)
[2018-07-23] MEDS: LORATADINE 5 MG HALF-TAB PO SCH (09:00)
[2018-07-23 18:10] VITALS: BP 142/80
[2018-07-23] MEDS: SERTRALINE HCL 25 MG TABLET PO SCH (21:47)
[2018-07-24 06:00] VITALS: BP 125/86
[2018-07-24] MEDS: LEVOTHYROXINE 88MCG TABLET (0.088 MG) PO SCH (06:23)
[2018-07-24] MEDS: hydrOXYzine 50 MG TAB PO PRN ×2 (06:27→20:48)
--- NOTE | 2018-07-24 07:45 | MHIPN ---
DATE: 07/23/2018 SUBJECTIVE: She reports she has been doing well. She still feels depressed, however denied any suicidal thoughts and asked me to keep the same dose as she thinks the medication takes some time for action and she will be seeing her doctor on Wednesday. OBJECTIVE: She is a 53-year-old female with history of schizoaffective disorder with history of multiple psychotic hospitalization who was admitted because of suicidal thoughts trying to jump off the bridge. Currently, still depressed but there is no suicidal thoughts. Denies any hallucinations or any delusions. MENTAL STATUS EXAMINATION: Casually dressed. Cooperative. Made good eye contact. Psychomotor activity is mildly retarded. Speech: Low tone, soft, a few words. Coherent and goal directed. Mood is depressed. Affect is constricted. Thought content: Denied any delusions. Denied suicidal or homicidal ideas. Insight and judgment are limited. Alert, oriented to time, place and person. Memory is intact. DIAGNOSES: Schizoaffective disorder, depressed. Generalized anxiety disorder. VITAL SIGNS: Temperature 97.6, pulse 80, respiratory rate is 14, blood pressure is114/69. CURRENT MEDICATIONS: - levothyroxine 88 mcg once daily - sertraline 25 mg once daily LABS: CBC, CMP within normal limits. Toxicology was negative. Plan is to continue on current medications. Continue individual and group therapy. Estimated length of stay 4 to 5 days.
[2018-07-24] MEDS: LORATADINE 5 MG HALF-TAB PO SCH (09:00)
[2018-07-24 17:59] VITALS: BP 134/67
[2018-07-24] MEDS: SERTRALINE HCL 25 MG TABLET PO SCH (20:48)
[2018-07-24] MEDS: traZODone 50 MG TAB PO PRN (20:48)
[2018-07-25] MEDS: LEVOTHYROXINE 88MCG TABLET (0.088 MG) PO SCH (06:08)
[2018-07-25 06:42] VITALS: BP 120/58
[2018-07-25] MEDS: LORATADINE 5 MG HALF-TAB PO SCH (09:00)
--- NOTE | 2018-07-25 09:30 | MHIPN ---
DATE: 07/24/2018 SUBJECTIVE: "I am still depressed. I think it take for the medication sometime before it starts acting." OBJECTIVE: She is a 53-year-old female with a history of severe affective disorder. With a history of multiple psychiatric hospitalization who was admitted because of suicidal thoughts of jumping off a bridge. Currently still depressed. Has no suicidal thoughts. She was ambivalent regarding the increase in the dose of Zoloft. Denies any hallucinations or any delusions. MENTAL STATUS EXAMINATION: Casually dressed. Cooperative. Made good eye contact. Psychomotor activity is normal. Speech low tone, soft, few words, goal directed. Mood is depressed. Affect is constricted. Thought content: Denied any delusions, no suicidal or homicidal ideations. Insight and judgment are fair. Cognition, she is alert and oriented to time, place person and situation. Memory is intact. VITAL SIGNS: Temperature 99.2, pulse 112, respiratory rate 18, blood pressure 124/86 REVIEW OF SYSTEMS: Denies chest pain, palpitations, denied abdominal pain, dysuria, denies shortness of breath or cough. Denied dizziness, tingling. DIAGNOSIS: Schizoaffective disorder depressed. Generalized anxiety disorder. PLAN: Continue her current medications. Continue individual and group therapy. Continue including Zoloft as patient continues to be depressed.
--- NOTE | 2018-07-25 10:42 | MHIPNPDOC ---
[facility] Progress Note Progress Note DATE OF SERVICE: 07/25/18 HISTORY: Patient is a 53 -year-old , female, with a history of schizoaffective d/o and multiple admissions [facility] last d/c 05/09/18 after 2wk stay who was brought to ED by [employer] that were called by the pt's mother b/c her bother saw her standing on a bridge and place one foot over the railing. [employer] found pt on the the bridge and per ED she told them she was suicidal. When pt arrived to the ED she denied SI/HI and stated "I was just looking at the water." Pt also reported by family to have recently told her that she had saved some money she was planning on leaving him. Pt's family believe that pt is struggling due to loss of job earlier this year causing finances to be limited for Mariah. Pt seen and appears improved from last admission especially regarding anxiety and psychosis. Does appear very flat but she states she feels good although notices that her emotions are "very mellow." States her family are concerned and they are considering changing her to abilify [facility] outpatient due to it. Pt has tried abilify in the past which has shown to not be beneficial for dunia/psychosis so would not recommend this but rather a decrease in her invega sustenna monthly dose to 156mg which pt agrees may be beneficial as she does feel her current med is beneficial. Denies depression and anxiety and states that hardwood sawyer asked her about when she was last suicidal and she told them of time prior to her last admission. Denies current SI/HI and again states she was just trying to look at the water in the park. States her family watch her every move which she finds annoying. States she saved money to help her with bills no as an inheritance. States her got a new job and finances have been better. Agreeable to trying zoloft in conjunction with invega sustenna to see if combination beneficial for mood, flat affect, depression. Denies SI/HI, hallucinations, delusions. Feels safe here. VITAL SIGNS: See below. NEW TEST RESULTS: See below. CURRENT MEDICATIONS: See below. MENTAL STATUS EXAMINATION: General Appearance: unkempt, disheveled, appears stated age, hospital scrubs/clothing Build: average Demeanor: average, guarded Eye Contact: average Activity: average Behavior: cooperative Speech: clear, spontaneous, normal volume, reg/rate,rhythm,volume Mood: euthymic Mood "foggy" Affect: constricted, flat, incongruent Thought Process: logical/linear, concrete, depressed, intact Thought Content (Delusions): none reported, denies SI, HI, AVH Thought Content (Other): guarded Thought Content (Aggressive): none reported Perception (Hallucinations): none reported Perception (Other): none reported Cognition (Impairment of): none reported Cognition(Intelligence Est.): average Oriented: Awake, Alert, Oriented times three Insight: poor Judgment: Poor Psychosis: Denies DIAGNOSES: Schizoaffective d/o - depressed Generalized Anxiety D/o ASSESSMENT:Pt seen and states she feels a little better. Per staff, pt sleeping during day often over the weekend. Pt states it's b/c she's bored here but admits it was happening to less extent at home too. Encouraged to walk milieu, socialize in day room, and attend groups during the day to prevent her from laying in bed sleeping during the day out of boredom and to improve mood. Moods remains flat with anhedonia and avolition. Continues to endorse anhedonia she robert pastor is due to invega which I agree and would recomment invega sustenna 156mg im for her next administration to see if it improves pt's flat affect. Pt states that she's tolerating zoloft but doesn't notice any affects from the medicine yet and is waiting for it to start to be therapeutic. Will d/c zoloft as doesn't appear beneficial and due to pt's anhedonia and avolition believe effexor xr will be more beneficial expecially regarding anhedonia and avolition as it can be stimulaing due to NE effect. Continues to deny SI, engaging in possibly risky behavior ("stepping over bridge railing to see water, sitting on window sill to get air") and believes her family don't trust her and are way to concerned for her, will always believe she is a risk to herself. Pt does appear improved from last admission. She denies current SI/HI, hallucinations, delusions. Feels safe here. MANAGEMENT PLAN: continue current treatment plan. Medications: invega sustenna 234mg im 07/08/18 effexor xr 75mg for mood TIME SPENT: 30 minutes. Vital Signs Vital Signs Date Time Temp Pulse Resp B/P (MAP) Pulse Ox O2 Delivery O2 Flow Rate FiO2 07/25/18 06:42 96.1 68 12 120/58 (78) 07/24/18 06:00 97 Room Air Current Medications Current Medications Acetaminophen (Tylenol Tab) 650 mg Q6HP PRN PO HEADACHE or DISCOMFORT; Start 07/20/18 at 20:30 Al Hydrox/Mg Hydrox/Simethicone (Mylanta) 30 ml Q4HP PRN PO HEARTBURN/INDIGESTION; Start 07/20/18 at 20:30 Aripiprazole (AbiLIFY) 2 mg QHS PO Last administered on 07/20/18at 21:00; Start 07/20/18 at 21:00; Stop 07/21/18 at 11:22; Status DC Home Med (Med Rec Complete!) ASDIRECTED XX ; Start 07/20/18 at 19:45; Stop 07/20/18 at 19:45; Status DC Hydroxyzine HCl (Atarax) 50 mg Q6HP PRN PO ANXIETY/AGITATION Last administered on 07/24/18at 20:48; Start 07/23/18 at 14:15 Levothyroxine Sodium (Synthroid) 88 mcg DAILY@0600 PO Last administered on 07/25/18at 06:08; Start 07/21/18 at 06:00 Loratadine (Claritin) 5 mg DAILY PO ; Start 07/23/18 at 09:00 Lorazepam (Ativan) 1 mg STAT STAT PO Last administered on 07/20/18at 19:34; Start 07/20/18 at 19:34; Stop 07/20/18 at 19:35; Status DC Magnesium Hydroxide (Milk Of Magnesia) 30 ml DAILYPRN PRN PO CONSTIPATION; Start 07/20/18 at 20:30 Sertraline HCl (Zoloft) 25 mg QHS PO Last administered on 07/24/18at 20:48; Start 07/20/18 at 21:00 Trazodone HCl (Desyrel) 50 mg QHSP PRN PO INSOMNIA Last administered on 07/24/18at 20:48; Start 07/20/18 at 20:30 Allergies Coded Allergies: Latex (Verified Allergy, Unknown, ?, 04/04/14) RADHA HARP DO Jul 25, 2018 10:42 am
[2018-07-25] MEDS: VENLAFAXINE **XR** 75MG CAPSULE PO SCH (12:30)
[2018-07-25 18:00] VITALS: BP 122/84
[2018-07-26 06:11] VITALS: BP 137/96
[2018-07-26] MEDS: LEVOTHYROXINE 88MCG TABLET (0.088 MG) PO SCH (06:11)
[2018-07-26] MEDS: VENLAFAXINE **XR** 75MG CAPSULE PO SCH (09:09)
[2018-07-26] MEDS: LORATADINE 5 MG HALF-TAB PO SCH (09:09)
[2018-07-26 18:11] VITALS: BP 92/69
[2018-07-27] MEDS: LEVOTHYROXINE 88MCG TABLET (0.088 MG) PO SCH (06:21)
[2018-07-27 06:35] VITALS: BP 118/61
[2018-07-27] MEDS: LORATADINE 5 MG HALF-TAB PO SCH (09:16)
[2018-07-27] MEDS: VENLAFAXINE **XR** 75MG CAPSULE PO SCH (09:16)
[2018-07-27 09:55] VITALS: BP 118/61
--- NOTE | 2018-07-27 10:27 | MHIPNPDOC ---
[facility] Progress Note Progress Note DATE OF SERVICE: 07/27/18 HISTORY: Patient is a 53 -year-old , female, with a history of schizoaffective d/o and multiple admissions [facility] last d/c 05/09/18 after 2wk stay who was brought to ED by [employer] that were called by the pt's mother b/c her bother saw her standing on a bridge and place one foot over the railing. [employer] found pt on the the bridge and per ED she told them she was suicidal. When pt arrived to the ED she denied SI/HI and stated "I was just looking at the water." Pt also reported by family to have recently told her that she had saved some money she was planning on leaving him. Pt's family believe that pt is struggling due to loss of job earlier this year causing finances to be limited for Mariah. Pt seen and appears improved from last admission especially regarding anxiety and psychosis. Does appear very flat but she states she feels good although notices that her emotions are "very mellow." States her family are concerned and they are considering changing her to abilify aristada outpatient due to it. Pt has tried abilify in the past which has shown to not be beneficial for dunia/psychosis so would not recommend this but rather a decrease in her invega sustenna monthly dose to 156mg which pt agrees may be beneficial as she does feel her current med is beneficial. Denies depression and anxiety and states that distribution estimator asked her about when she was last suicidal and she told them of time prior to her last admission. Denies current SI/HI and again states she was just trying to look at the water in the park. States her family watch her every move which she finds annoying. States she saved money to help her with bills no as an inheritance. States her got a new job and finances have been better. Agreeable to trying zoloft in conjunction with invega sustenna to see if combination beneficial for mood, flat affect, depression. Denies SI/HI, hallucinations, delusions. Feels safe here. VITAL SIGNS: See below. NEW TEST RESULTS: See below. CURRENT MEDICATIONS: See below. MENTAL STATUS EXAMINATION: General Appearance: unkempt, disheveled, appears stated age, hospital scrubs/clothing Build: average Demeanor: average, guarded Eye Contact: average Activity: average Behavior: cooperative Speech: clear, spontaneous, normal volume, reg/rate,rhythm,volume Mood: euthymic Mood "foggy" Affect: constricted, flat, incongruent Thought Process: logical/linear, concrete, depressed, intact Thought Content (Delusions): none reported, denies SI, HI, AVH Thought Content (Other): guarded Thought Content (Aggressive): none reported Perception (Hallucinations): none reported Perception (Other): none reported Cognition (Impairment of): none reported Cognition(Intelligence Est.): average Oriented: Awake, Alert, Oriented times three Insight: poor Judgment: Poor Psychosis: Denies DIAGNOSES: Schizoaffective d/o - depressed Generalized Anxiety D/o ASSESSMENT:Pt seen laying in bed this morning in her room resting at first. Continues to endorse anhedonia/avolition. States she's tolerating effexor xr but doesn't notice anything from taking med yet. Agreeable to increasing today to see if that's more beneficial. Denies side effects. Encouraged to walk milieu, socialize in day room, and attend groups during the day to prevent her from laying in bed sleeping during the day out of boredom and to improve mood. Moods remains flat with anhedonia and avolition. Continues to endorse anhedonia she believes is due to invega which I agree and would recomment invega sustenna 156mg im for her next administration to see if it improves pt's flat affect. Continues to deny SI, engaging in possibly risky behavior ("stepping over bridge railing to see water, sitting on window sill to get air") and believes her family don't trust her and are way to concerned for her, will always believe she is a risk to herself. Pt does appear improved from last admission. She denies current SI/HI, hallucinations, delusions. Feels safe here. MANAGEMENT PLAN: continue current treatment plan. Medications: invega sustenna 234mg im 07/08/18 effexor xr 150mg for mood TIME SPENT: 30 minutes. Vital Signs Vital Signs Date Time Temp Pulse Resp B/P (MAP) Pulse Ox O2 Delivery O2 Flow Rate FiO2 07/27/18 09:55 97.6 110 16 118/61 97 Room Air Current Medications Current Medications Acetaminophen (Tylenol Tab) 650 mg Q6HP PRN PO HEADACHE or DISCOMFORT; Start 07/20/18 at 20:30 Al Hydrox/Mg Hydrox/Simethicone (Mylanta) 30 ml Q4HP PRN PO HEARTBURN/INDIGESTION; Start 07/20/18 at 20:30 Aripiprazole (AbiLIFY) 2 mg QHS PO Last administered on 07/20/18at 21:00; Start 07/20/18 at 21:00; Stop 07/21/18 at 11:22; Status DC Home Med (Med Rec Complete!) ASDIRECTED XX ; Start 07/20/18 at 19:45; Stop 07/20/18 at 19:45; Status DC Hydroxyzine HCl (Atarax) 50 mg Q6HP PRN PO ANXIETY/AGITATION Last administered on 07/24/18at 20:48; Start 07/23/18 at 14:15 Levothyroxine Sodium (Synthroid) 88 mcg DAILY@0600 PO Last administered on 07/27/18at 06:21; Start 07/21/18 at 06:00 Loratadine (Claritin) 5 mg DAILY PO Last administered on 07/27/18at 09:16; Start 07/23/18 at 09:00 Lorazepam (Ativan) 1 mg STAT STAT PO Last administered on 07/20/18at 19:34; Start 07/20/18 at 19:34; Stop 07/20/18 at 19:35; Status DC Magnesium Hydroxide (Milk Of Magnesia) 30 ml DAILYPRN PRN PO CONSTIPATION; Start 07/20/18 at 20:30 Sertraline HCl (Zoloft) 25 mg QHS PO Last administered on 07/24/18at 20:48; Start 07/20/18 at 21:00; Stop 07/25/18 at 10:43; Status DC Trazodone HCl (Desyrel) 50 mg QHSP PRN PO INSOMNIA Last administered on 07/24/18at 20:48; Start 07/20/18 at 20:30 Venlafaxine HCl (Effexor Xr) 75 mg DAILY PO Last administered on 07/27/18at 09:16; Start 07/25/18 at 09:00 Allergies Coded Allergies: Latex (Verified Allergy, Unknown, ?, 04/04/14) RADHA HARP DO Jul 27, 2018 10:27 am
[2018-07-27] MEDS ORDERED: VENLAFAXINE **XR** 75MG CAPSULE PO ONE (11:00)
[2018-07-27] MEDS: NYSTATIN 100,000 UNITS/GM TOPICAL PWD 15 GM TOP SCH ×2 (12:19→21:00)
[2018-07-27 18:20] VITALS: BP 108/58
[2018-07-28] MEDS: LEVOTHYROXINE 88MCG TABLET (0.088 MG) PO SCH (06:07)
[2018-07-28 06:53] VITALS: BP 116/74
[2018-07-28] MEDS: VENLAFAXINE **XR** 75MG CAPSULE PO SCH (09:19)
[2018-07-28] MEDS: LORATADINE 5 MG HALF-TAB PO SCH (09:19)
[2018-07-28] MEDS: NYSTATIN 100,000 UNITS/GM TOPICAL PWD 15 GM TOP SCH ×2 (09:20→21:00)
--- NOTE | 2018-07-28 09:40 | MHIPNPDOC ---
[facility] Progress Note Progress Note DATE OF SERVICE: 07/28/18 HISTORY: Patient is a 53 -year-old , female, with a history of schizoaffective d/o and multiple admissions [facility] last d/c 05/09/18 after 2wk stay who was brought to ED by [employer] that were called by the pt's mother b/c her bother saw her standing on a bridge and place one foot over the railing. [employer] found pt on the the bridge and per ED she told them she was suicidal. When pt arrived to the ED she denied SI/HI and stated "I was just looking at the water." Pt also reported by family to have recently told her that she had saved some money she was planning on leaving him. Pt's family believe that pt is struggling due to loss of job earlier this year causing finances to be limited for Mariah. Pt seen and appears improved from last admission especially regarding anxiety and psychosis. Does appear very flat but she states she feels good although notices that her emotions are "very mellow." States her family are concerned and they are considering changing her to abilify aristada outpatient due to it. Pt has tried abilify in the past which has shown to not be beneficial for dunia/psychosis so would not recommend this but rather a decrease in her invega sustenna monthly dose to 156mg which pt agrees may be beneficial as she does feel her current med is beneficial. Denies depression and anxiety and states that fruit [employer] farmworker asked her about when she was last suicidal and she told them of time prior to her last admission. Denies current SI/HI and again states she was just trying to look at the [place] in the park. States her family watch her every move which she finds annoying. States she saved money to help her with bills no as an inheritance. States her got a new job and finances have been better. Agreeable to trying zoloft in conjunction with invega sustenna to see if combination beneficial for mood, flat affect, depression. Denies SI/HI, hallucinations, delusions. Feels safe here. VITAL SIGNS: See below. NEW TEST RESULTS: See below. CURRENT MEDICATIONS: See below. MENTAL STATUS EXAMINATION: General Appearance: unkempt, disheveled, appears stated age, hospital scrubs/clothing Build: average Demeanor: average, guarded Eye Contact: average Activity: average Behavior: cooperative Speech: clear, spontaneous, normal volume, reg/rate,rhythm,volume Mood: flat with anhedonia, avolition Mood "ok" Affect: constricted, flat, incongruent Thought Process: logical/linear, concrete, depressed, intact Thought Content (Delusions): none reported, denies SI, HI, AVH Thought Content (Other): guarded Thought Content (Aggressive): none reported Perception (Hallucinations): none reported Perception (Other): none reported Cognition (Impairment of): none reported Cognition(Intelligence Est.): average Oriented: Awake, Alert, Oriented times three Insight: poor Judgment: Poor Psychosis: Denies DIAGNOSES: Schizoaffective d/o - depressed Generalized Anxiety D/o ASSESSMENT:Roughly no change from yesterday. Pt seen laying in bed this morning in her room resting at first. Continues to endorse anhedonia/avolition. States she's not sleeping at night as she hears the unit door slam all thru the night and it keeps her up. Requesting room change to different ta. States she's tolerating effexor xr but doesn't notice anything much from taking med yet. Appears less anhedonic with increase though and more alert. Denies side effects. Encouraged to walk milieu, socialize in day room, and attend groups during the day to prevent her from laying in bed sleeping during the day out of boredom and to improve mood. Moods remains predominately flat with anhedonia and avolition. Continues to endorse anhedonia she believes is due to invega which I agree and would recomment invega sustenna 156mg im for her next administration to see if it improves pt's flat affect. Continues to deny SI, engaging in possibly risky behavior ("stepping over bridge railing to see water, sitting on window sill to get air") and believes her family don't trust her and are way to concerned for her, will always believe she is a risk to herself. Pt does appear improved from last admission. She denies current SI/HI, hallucinations, delusions. Feels safe here. MANAGEMENT PLAN: continue current treatment plan. Medications: invega sustenna 234mg im 07/08/18 effexor xr 150mg for mood TIME SPENT: 30 minutes. Vital Signs Vital Signs Date Time Temp Pulse Resp B/P (MAP) Pulse Ox O2 Delivery O2 Flow Rate FiO2 07/28/18 06:53 98.9 89 16 116/74 (88) Room Air 07/27/18 09:55 97 Current Medications Current Medications Acetaminophen (Tylenol Tab) 650 mg Q6HP PRN PO HEADACHE or DISCOMFORT; Start 07/20/18 at 20:30 Al Hydrox/Mg Hydrox/Simethicone (Mylanta) 30 ml Q4HP PRN PO HEARTBURN/INDIGESTION; Start 07/20/18 at 20:30 Aripiprazole (AbiLIFY) 2 mg QHS PO Last administered on 07/20/18at 21:00; Start 07/20/18 at 21:00; Stop 07/21/18 at 11:22; Status DC Home Med (Med Rec Complete!) ASDIRECTED XX ; Start 07/20/18 at 19:45; Stop 07/20/18 at 19:45; Status DC Hydroxyzine HCl (Atarax) 50 mg Q6HP PRN PO ANXIETY/AGITATION Last administered on 07/24/18at 20:48; Start 07/23/18 at 14:15 Levothyroxine Sodium (Synthroid) 88 mcg DAILY@0600 PO Last administered on 07/28/18at 06:07; Start 07/21/18 at 06:00 Loratadine (Claritin) 5 mg DAILY PO Last administered on 07/28/18at 09:19; Start 07/23/18 at 09:00 Lorazepam (Ativan) 1 mg STAT STAT PO Last administered on 07/20/18at 19:34; Start 07/20/18 at 19:34; Stop 07/20/18 at 19:35; Status DC Magnesium Hydroxide (Milk Of Magnesia) 30 ml DAILYPRN PRN PO CONSTIPATION; Start 07/20/18 at 20:30 Nystatin (Mycostatin Powder, Nystop) BID TOP Last administered on 07/28/18at 09:20; Start 07/27/18 at 09:00 Sertraline HCl (Zoloft) 25 mg QHS PO Last administered on 07/24/18at 20:48; Start 07/20/18 at 21:00; Stop 07/25/18 at 10:43; Status DC Trazodone HCl (Desyrel) 50 mg QHSP PRN PO INSOMNIA Last administered on 07/24/18at 20:48; Start 07/20/18 at 20:30 Venlafaxine HCl (Effexor Xr) 75 mg DAILY PO Last administered on 07/27/18at 09:16; Start 07/25/18 at 09:00; Stop 07/27/18 at 10:28; Status DC Venlafaxine HCl (Effexor Xr) 150 mg DAILY PO Last administered on 07/28/18at 09:19; Start 07/28/18 at 09:00 Allergies Coded Allergies: Latex (Verified Allergy, Unknown, ?, 04/04/14) RADHA HARP DO Jul 28, 2018 9:40 am
[2018-07-28 18:00] VITALS: BP 116/76
[2018-07-29] MEDS: LEVOTHYROXINE 88MCG TABLET (0.088 MG) PO SCH (05:55)
[2018-07-29 06:29] VITALS: BP 100/65
[2018-07-29] MEDS: VENLAFAXINE **XR** 75MG CAPSULE PO SCH (08:34)
[2018-07-29] MEDS: NYSTATIN 100,000 UNITS/GM TOPICAL PWD 15 GM TOP SCH ×2 (08:34→20:20)
[2018-07-29] MEDS: LORATADINE 5 MG HALF-TAB PO SCH (08:34)
--- NOTE | 2018-07-29 08:34 | MHIPNPDOC ---
[facility] Progress Note Progress Note DATE OF SERVICE: 07/29/18 HISTORY: Patient is a 53 -year-old , female, with a history of schizoaffective d/o and multiple admissions [facility] last d/c 05/09/18 after 2wk stay who was brought to ED by [employer] that were called by the pt's mother b/c her bother saw her standing on a bridge and place one foot over the railing. [employer] found pt on the the bridge and per ED she told them she was suicidal. When pt arrived to the ED she denied SI/HI and stated "I was just looking at the water." Pt also reported by family to have recently told her that she had saved some money she was planning on leaving him. Pt's family believe that pt is struggling due to loss of job earlier this year causing finances to be limited for Mariah. Pt seen and appears improved from last admission especially regarding anxiety and psychosis. Does appear very flat but she states she feels good although notices that her emotions are "very mellow." States her family are concerned and they are considering changing her to abilify aristada outpatient due to it. Pt has tried abilify in the past which has shown to not be beneficial for dunia/psychosis so would not recommend this but rather a decrease in her invega sustenna monthly dose to 156mg which pt agrees may be beneficial as she does feel her current med is beneficial. Denies depression and anxiety and states that plastic parts designer asked her about when she was last suicidal and she told them of time prior to her last admission. Denies current SI/HI and again states she was just trying to look at the water in the park. States her family watch her every move which she finds annoying. States she saved money to help her with bills no as an inheritance. States her got a new job and finances have been better. Agreeable to trying zoloft in conjunction with invega sustenna to see if combination beneficial for mood, flat affect, depression. Denies SI/HI, hallucinations, delusions. Feels safe here. VITAL SIGNS: See below. NEW TEST RESULTS: See below. CURRENT MEDICATIONS: See below. MENTAL STATUS EXAMINATION: General Appearance: unkempt, disheveled, appears stated age, hospital scrubs/clothing Build: average Demeanor: average, guarded Eye Contact: average Activity: average Behavior: cooperative Speech: clear, spontaneous, normal volume, reg/rate,rhythm,volume Mood: flat with anhedonia, avolition Mood "ok" Affect: constricted, flat, incongruent Thought Process: logical/linear, concrete, depressed, intact Thought Content (Delusions): none reported, very unreliable denial of suicide as behavior, history, and affect indicate someone at high risk of suicide Thought Content (Other): guarded Thought Content (Aggressive): none reported Perception (Hallucinations): none reported Perception (Other): none reported Cognition (Impairment of): none reported Cognition(Intelligence Est.): average Oriented: Awake, Alert, Oriented times three Insight: poor Judgment: Poor Psychosis: Denies DIAGNOSES: Schizoaffective d/o - depressed Generalized Anxiety D/o ASSESSMENT:Roughly no change from yesterday. Pt seen in office this morning asking for room to be changed as can't sleep at night due to hearing unit door open and close all night. Advised will make sure room is changed today. Continues to endorse anhedonia/avolition. States she's tolerating effexor xr but doesn't notice anything much from taking med yet. Appears less anhedonic with slightly improved affect and more alert. Denies side effects. Encouraged to walk milieu, socialize in day room, and attend groups during the day to prevent her from laying in bed sleeping during the day out of boredom and to improve mood. Moods remains predominately flat with anhedonia and avolition. Continues to endorse anhedonia she believes is due to invega which I agree and would recomment invega sustenna 156mg im for her next administration to see if it improves pt's flat affect. Continues to deny SI, engaging in possibly risky behavior ("stepping over bridge railing to see water, sitting on window sill to get air") and believes her family don't trust her and are way to concerned for her, will always believe she is a risk to herself. Pt does appear improved from last admission. Pt is a high risk of suicide given current symptoms of anhedonia, avolition, disinterest, helplessness, refusing to attend groups routinely, poor self care, in bed all day sleeping or staring at wall, very flat affect, behavior incongruent with denial of suicide and history indicate pt at high risk of either impulsive or planned suicide as if she's hoping she will get a moment by herself to actually do it. Seems to want to leave to just be alone and possible commit suicide. MANAGEMENT PLAN: continue current treatment plan. change pt's room to one away from door. Medications: invega sustenna 234mg im 07/08/18 effexor xr 150mg for mood TIME SPENT: 30 minutes. Vital Signs Vital Signs Date Time Temp Pulse Resp B/P (MAP) Pulse Ox O2 Delivery O2 Flow Rate FiO2 07/29/18 06:29 97.5 94 16 100/65 (77) 07/28/18 06:53 Room Air 07/27/18 09:55 97 Current Medications Current Medications Acetaminophen (Tylenol Tab) 650 mg Q6HP PRN PO HEADACHE or DISCOMFORT; Start 07/20/18 at 20:30 Al Hydrox/Mg Hydrox/Simethicone (Mylanta) 30 ml Q4HP PRN PO HEARTBURN/INDIGESTION; Start 07/20/18 at 20:30 Aripiprazole (AbiLIFY) 2 mg QHS PO Last administered on 07/20/18at 21:00; Start 07/20/18 at 21:00; Stop 07/21/18 at 11:22; Status DC Home Med (Med Rec Complete!) ASDIRECTED XX ; Start 07/20/18 at 19:45; Stop 07/20/18 at 19:45; Status DC Hydroxyzine HCl (Atarax) 50 mg Q6HP PRN PO ANXIETY/AGITATION Last administered on 07/24/18at 20:48; Start 07/23/18 at 14:15 Levothyroxine Sodium (Synthroid) 88 mcg DAILY@0600 PO Last administered on 07/29/18at 05:55; Start 07/21/18 at 06:00 Loratadine (Claritin) 5 mg DAILY PO Last administered on 07/28/18at 09:19; Start 07/23/18 at 09:00 Lorazepam (Ativan) 1 mg STAT STAT PO Last administered on 07/20/18at 19:34; Start 07/20/18 at 19:34; Stop 07/20/18 at 19:35; Status DC Magnesium Hydroxide (Milk Of Magnesia) 30 ml DAILYPRN PRN PO CONSTIPATION; Start 07/20/18 at 20:30 Nystatin (Mycostatin Powder, Nystop) BID TOP Last administered on 07/28/18at 09:20; Start 07/27/18 at 09:00 Sertraline HCl (Zoloft) 25 mg QHS PO Last administered on 07/24/18at 20:48; Start 07/20/18 at 21:00; Stop 07/25/18 at 10:43; Status DC Trazodone HCl (Desyrel) 50 mg QHSP PRN PO INSOMNIA Last administered on 07/03 10/17at 20:48; Start 07/20/18 at 20:30 Venlafaxine HCl (Effexor Xr) 75 mg DAILY PO Last administered on 07/27/18at 09:16; Start 07/25/18 at 09:00; Stop 07/27/18 at 10:28; Status DC Venlafaxine HCl (Effexor Xr) 150 mg DAILY PO Last administered on 07/28/18at 09:19; Start 07/28/18 at 09:00 Allergies Coded Allergies: Latex (Verified Allergy, Unknown, ?, 04/04/14) RADHA HARP DO Jul 29, 2018 8:34 am
[2018-07-29 18:00] VITALS: BP 100/56
[2018-07-30] MEDS: LEVOTHYROXINE 88MCG TABLET (0.088 MG) PO SCH (05:58)
[2018-07-30 06:31] VITALS: BP 129/83
[2018-07-30] MEDS: LORATADINE 5 MG HALF-TAB PO SCH (08:32)
[2018-07-30] MEDS: NYSTATIN 100,000 UNITS/GM TOPICAL PWD 15 GM TOP SCH ×2 (08:32→20:27)
[2018-07-30] MEDS: VENLAFAXINE **XR** 75MG CAPSULE PO SCH (08:32)
[2018-07-30] MEDS: MOM 30ML SUSPENSION UDC PO PRN (09:56)
[2018-07-30 18:00] VITALS: BP 116/67
[2018-07-31] MEDS: LEVOTHYROXINE 88MCG TABLET (0.088 MG) PO SCH (06:26)
[2018-07-31 06:35] VITALS: BP 121/84
[2018-07-31] MEDS: LORATADINE 5 MG HALF-TAB PO SCH (08:22)
[2018-07-31] MEDS: NYSTATIN 100,000 UNITS/GM TOPICAL PWD 15 GM TOP SCH ×2 (08:22→21:00)
[2018-07-31] MEDS: VENLAFAXINE **XR** 75MG CAPSULE PO SCH (08:22)
[2018-07-31] MEDS ORDERED: BISACODYL 5 MG TAB PO ONE (09:00)
[2018-07-31] MEDS: MOM 30ML SUSPENSION UDC PO PRN (09:50)
[2018-07-31 18:00] VITALS: BP 103/63
[2018-08-01] MEDS: LEVOTHYROXINE 88MCG TABLET (0.088 MG) PO SCH (06:22)
[2018-08-01 06:39] VITALS: BP 111/69
[2018-08-01] MEDS: LORATADINE 5 MG HALF-TAB PO SCH (08:45)
[2018-08-01] MEDS: VENLAFAXINE **XR** 75MG CAPSULE PO SCH (08:45)
[2018-08-01] MEDS: NYSTATIN 100,000 UNITS/GM TOPICAL PWD 15 GM TOP SCH ×2 (08:46→21:00)
--- NOTE | 2018-08-01 09:03 | MHIPNPDOC ---
[facility] Progress Note Progress Note DATE OF SERVICE: 08/01/18 HISTORY: Patient is a 53 -year-old , female, with a history of schizoaffective d/o and multiple admissions [facility] last d/c 05/09/18 after 2wk stay who was brought to ED by [employer] that were called by the pt's mother b/c her bother saw her standing on a bridge and place one foot over the railing. [employer] found pt on the the bridge and per ED she told them she was suicidal. When pt arrived to the ED she denied SI/HI and stated "I was just looking at the water." Pt also reported by family to have recently told her that she had saved some money she was planning on leaving him. Pt's family believe that pt is struggling due to loss of job earlier this year causing finances to be limited for [place]. Pt seen and appears improved from last admission especially regarding anxiety and psychosis. Does appear very flat but she states she feels good although notices that her emotions are "very mellow." States her family are concerned and they are considering changing her to abilify aristada outpatient due to it. Pt has tried abilify in the past which has shown to not be beneficial for dunia/psychosis so would not recommend this but rather a decrease in her invega sustenna monthly dose to 156mg which pt agrees may be beneficial as she does feel her current med is beneficial. Denies depression and anxiety and states that delivery table feeder asked her about when she was last suicidal and she told them of time prior to her last admission. Denies current SI/HI and again states she was just trying to look at the water in the park. States her family watch her every move which she finds annoying. States she saved money to help her with bills no as an inheritance. States her got a new job and finances have been better. Agreeable to trying zoloft in conjunction with invega sustenna to see if combination beneficial for mood, flat affect, depression. Denies SI/HI, hallucinations, delusions. Feels safe here. VITAL SIGNS: See below. NEW TEST RESULTS: See below. CURRENT MEDICATIONS: See below. MENTAL STATUS EXAMINATION: General Appearance: unkempt, disheveled, appears stated age, hospital scrubs/clothing Build: average Demeanor: average, guarded Eye Contact: average Activity: average Behavior: cooperative Speech: clear, spontaneous, normal volume, reg/rate,rhythm,volume Mood: flat with anhedonia, avolition Mood "ok" Affect: constricted, flat, incongruent Thought Process: logical/linear, concrete, depressed, intact Thought Content (Delusions): none reported, very unreliable denial of suicide as behavior, history, and affect indicate someone at high risk of suicide Thought Content (Other): guarded Thought Content (Aggressive): none reported Perception (Hallucinations): none reported Perception (Other): none reported Cognition (Impairment of): none reported Cognition(Intelligence Est.): average Oriented: Awake, Alert, Oriented times three Insight: poor Judgment: Poor Psychosis: Denies DIAGNOSES: Schizoaffective d/o - depressed Generalized Anxiety D/o ASSESSMENT:Roughly no change from from last week. States she's not sleeping at night now b/c her nose was stuffy and heard the nurses station door close all night. Will start pt on seroquel at night for insomnia and mood. Continues to endorse anhedonia/avolition. States she's tolerating effexor xr but doesn't notice anything much from taking med yet. Will increase today. Appears less anhedonic with slightly improved affect and more alert. Denies side effects. Encouraged to walk milieu, socialize in day room, and attend groups during the day to prevent her from laying in bed sleeping during the day out of boredom and to improve mood. Moods remains predominately flat with anhedonia and avolition. Continues to endorse anhedonia she believes is due to invega which I agree and would recomment invega sustenna 156mg im for her next administration to see if it improves pt's flat affect. Continues to deny SI, engaging in possibly risky behavior ("stepping over bridge railing to see water, sitting on window sill to get air") and believes her family don't trust her and are way to concerned for her, will always believe she is a risk to herself. Pt does appear improved from last admission. Pt is a high risk of suicide given current symptoms of anhedonia, avolition, disinterest, helplessness, refusing to attend groups routinely, poor self care, in bed all day sleeping or staring at wall, very flat affect, behavior incongruent with denial of suicide and history indicate pt at high risk of either impulsive or planned suicide as if she's hoping she will get a moment by herself to actually do it. Seems to want to leave to just be alone and possible commit suicide. MANAGEMENT PLAN: continue current treatment plan. change pt's room to one away from door. Medications: invega sustenna 234mg im 07/08/18 effexor xr 225mg for mood Seroquel 50mg qhs TIME SPENT: 30 minutes. Vital Signs Vital Signs Date Time Temp Pulse Resp B/P (MAP) Pulse Ox O2 Delivery O2 Flow Rate FiO2 08/01/18 06:39 98.1 84 16 111/69 (83) 07/28/18 06:53 Room Air 07/27/18 09:55 97 Current Medications Current Medications Acetaminophen (Tylenol Tab) 650 mg Q6HP PRN PO HEADACHE or DISCOMFORT; Start 07/20/18 at 20:30 Al Hydrox/Mg Hydrox/Simethicone (Mylanta) 30 ml Q4HP PRN PO HEARTBURN/INDIGESTION; Start 07/20/18 at 20:30 Aripiprazole (AbiLIFY) 2 mg QHS PO Last administered on 07/20/18at 21:00; Start 07/20/18 at 21:00; Stop 07/21/18 at 11:22; Status DC Home Med (Med Rec Complete!) ASDIRECTED XX ; Start 07/20/18 at 19:45; Stop 07/20/18 at 19:45; Status DC Hydroxyzine HCl (Atarax) 50 mg Q6HP PRN PO ANXIETY/AGITATION Last administered on 07/24/18at 20:48; Start 07/23/18 at 14:15 Levothyroxine Sodium (Synthroid) 88 mcg DAILY@0600 PO Last administered on 08/01/18at 06:22; Start 07/21/18 at 06:00 Loratadine (Claritin) 5 mg DAILY PO Last administered on 08/01/18at 08:45; Start 07/23/18 at 09:00 Lorazepam (Ativan) 1 mg STAT STAT PO Last administered on 07/20/18at 19:34; Start 07/20/18 at 19:34; Stop 07/20/18 at 19:35; Status DC Magnesium Hydroxide (Milk Of Magnesia) 30 ml DAILYPRN PRN PO CONSTIPATION Last administered on 07/31/18 09:50; Start 07/20/18 at 20:30 Nystatin (Mycostatin Powder, Nystop) BID TOP Last administered on 08/01/18 08:46; Start 07/27/18 at 09:00 Sertraline HCl (Zoloft) 25 mg QHS PO Last administered on 07/24/18 20:48; Start 07/20/18 at 21:00; Stop 07/25/18 at 10:43; Status DC Trazodone HCl (Desyrel) 50 mg QHSP PRN PO INSOMNIA Last administered on 07/24/18at 20:48; Start 07/20/18 at 20:30 Venlafaxine HCl (Effexor Xr) 75 mg DAILY PO Last administered on 07/27/18 09:16; Start 07/25/18 at 09:00; Stop 07/27/18 at 10:28; Status DC Venlafaxine HCl (Effexor Xr) 150 mg DAILY PO Last administered on 08/01/18at 08:45; Start 07/28/18 at 09:00 Allergies Coded Allergies: Latex (Verified Allergy, Unknown, ?, 04/04/14) RADHA HARP DO Aug 01, 2018 9:03 am
[2018-08-01] MEDS ORDERED: MAGNESIUM CITRATE 300 ML BTL PO ONE (10:00)
[2018-08-01] MEDS: DOCUSATE SODIUM 100 MG CAP PO SCH ×2 (10:05→21:00)
[2018-08-01 18:00] VITALS: BP 93/53
[2018-08-01] MEDS: QUEtiapine FUMARATE 50 MG TAB PO SCH (21:00)
[2018-08-02] MEDS: LEVOTHYROXINE 88MCG TABLET (0.088 MG) PO SCH (06:17)
[2018-08-02 06:45] VITALS: BP 96/62
[2018-08-02] MEDS: LORATADINE 5 MG HALF-TAB PO SCH (08:57)
[2018-08-02] MEDS: DOCUSATE SODIUM 100 MG CAP PO SCH ×2 (08:58→20:13)
[2018-08-02] MEDS: NYSTATIN 100,000 UNITS/GM TOPICAL PWD 15 GM TOP SCH ×2 (08:58→20:12)
[2018-08-02] MEDS: VENLAFAXINE **XR** 75MG CAPSULE PO SCH (08:58)
--- NOTE | 2018-08-02 15:58 | ECGEPIP ---
Stationary ECG Study [facility] Test Date: 2018-08-02 Pat Name: JENNA VERA Department: Room: [place] [address] Gender: F Station Detective: CHAZ : [id number] Requested By: TYRONE HUITRON Order Number: [id number] Reading MD: Manas Waldrop Measurements Intervals [place] Rate: 86 P: 75 TN: 159 QRS: 73 QRSD: 84 T: 44 QT: 347 QTc: 415 Interpretive Statements SINUS RHYTHM Normal Electronically Signed On 08-02-2018 15:57:59 EST by Manas Waldrop
[2018-08-02 16:06] LABS: CK-MB VALUE MASS < 1.0 NG/ML (<3.6); CPK CREATINE PHOSPHOKINASE 60 U/L (26-192); MB/CK RELATIVE INDEX 1.67 (< OR =4); TROPONIN I < 0.02 NG/ML (< 0.10)
--- NOTE | 2018-08-02 16:41 | CR.PDOC ---
General Date of Consultation: Aug 02, 2018 Referring Provider: TYRONE HUITRON MD Consultation REASON FOR CONSULTATION/CHIEF COMPLAINT: Chest pain HISTORY OF PRESENT ILLNESS: This is a 53 y/o female admitted to [facility] for psychosis who started complaining of chest pain two days ago according to patient, states it is in the middle of her chest worse when she lays down on her left side, not with exertion. She also states that it is worse when she takes a deep breath in, describes it as more sharp pain, non-radiating. NO n/v or diarrhea, no chills/muscle aches or fevers. No sweating or associated jaw or shoulder pain. Does not hurt to palpate chest wall she states. No trauma to area she knows of. Just states it is hard for her to take a deep breath in, no heart palpitations, no SOB and no cough. No extremity swelling or pain. No headache and no change in vision, no dizziness or syncope. ALLERGIES: Please see below. HOME MEDICATIONS: Please see below. PAST MEDICAL HISTORY: hypothyroidism, psychiatric d/o psychosis, depression/anxiety FAMILY HISTORY: non-contributory REVIEW OF SYSTEMS: CONSTITUTIONAL: no change in sleep patterns HEENT: no headache or change in vision CARDIOVASCULAR: sub-sternal sharp, non-radiating, worse with laying on her side, not with exertion, no heart palpitations RESPIRATORY: feels like she cannot take a deep breath in due to chest discomfort, no wheezing, cough or SOB GENITOURINARY: no pain with urination MUSCULOSKELETAL: no swelling or pain in extremities GASTROINTESTINAL: no diarrhea, admits to intermittent constipation PHYSICAL EXAMINATION: VITAL SIGNS: Please see below. GENERAL APPEARANCE: NAD, comfortable HEENT: EOMI, nares patent b/l, moist mucus membranes RESPIRATORY: no wheezing, rales or rhonchi appreciated CARDIOVASCULAR: normal s1 and s2, no murmurs, rubs or gallops ABDOMEN: soft, non-distended, no pain to palpation, nabsx4, no hepatosplenomegaly, no rebound or guarding EXTREMITIES: no swelling, cyanosis or mottling NEUROLOGICAL: no focal deficits LABORATORY DATA: Please see below. ASSESSMENT/PLAN: 1.Chest pain, likely secondary to anxiety. -Cardiac markers pending, will follow up -EKG reviewed, no concerning signs for acute or impending ischemia or ST-T wave changes -CXR pending -continue to monitor for now, highly unlikely this is cardiac in nature Vital Signs/I&O Vital Signs Date Time Temp Pulse Resp B/P (MAP) Pulse Ox O2 Delivery O2 Flow Rate FiO2 08/02/18 06:45 97.0 100 12 96/62 (73) 07/28/18 06:53 Room Air 07/27/18 09:55 97 Laboratory Data Labs 24H Laboratory Tests 2 08/02/18 15:12: Total Creatine Kinase 60, Creatine Kinase MB < 1.0, Creatine Kinase MB Relative Index 1.67, Troponin I < 0.02 Allergies Coded Allergies: Latex (Verified Allergy, Unknown, ?, 04/04/14) Home Medications Scheduled Levothyroxine Sodium (Synthroid) 88 Mcg Tab, 88 MCG PO DAILY, (Reported) Paliperidone Palmitate (Invega Sustenna) 234 Mg/1.5 Ml Inj, 234 MG IM QMONTH, (Reported) GME ATTESTATION GME ATTESTATION My faculty preceptor for this patient encounter was physically present during the encounter and was fully available. All aspects of the patient interview, examination, medical decision making process, and medical care plan development were reviewed and approved by the faculty preceptor. The faculty preceptor is aware and concurs with the plan as stated in the body of this note and will attest to such by his/her cosignature. ATTENDING NOTE Pt seen and examined. Agree with A/P as above. CP likely anxiety related. If CXR negative, can sign off. Anxiety management per primary team LINDSEY ABDUL DO Aug 02, 2018 16:41 UMER PAVON MD Aug 02, 2018 21:39
--- NOTE | 2018-08-02 16:51 | REP ---
Clinical: Chest pain on inspiration . Comparison: 04/26/2018 . Findings: The mediastinum and cardiac silhouette are stable and within normal limits for portable technique. The lung olea are clear without acute consolidation, effusion, or pneumothorax. Skeletal structures are intact. Impression: No acute cardiopulmonary process appreciated. Electronically Signed by Jerad Charlton MD 08/02/2018 04:43 P
[2018-08-02 18:00] VITALS: BP 88/58
[2018-08-02] MEDS: QUEtiapine FUMARATE 50 MG TAB PO SCH (20:13)
[2018-08-02] MEDS: hydrOXYzine 50 MG TAB PO PRN (20:13)
[2018-08-03] MEDS: LEVOTHYROXINE 88MCG TABLET (0.088 MG) PO SCH (06:18)
[2018-08-03 07:00] VITALS: BP 108/70
[2018-08-03] MEDS: NYSTATIN 100,000 UNITS/GM TOPICAL PWD 15 GM TOP SCH ×2 (09:00→21:00)
[2018-08-03] MEDS ORDERED: **PENDING PPD ENTRY XX SCH (09:00)
[2018-08-03] MEDS: LORATADINE 5 MG HALF-TAB PO SCH (09:25)
[2018-08-03] MEDS: DOCUSATE SODIUM 100 MG CAP PO SCH ×2 (09:25→21:12)
[2018-08-03] MEDS: VENLAFAXINE **XR** 75MG CAPSULE PO SCH (09:25)
[2018-08-03] MEDS ORDERED: TUBERCULIN PPD 5 UNITS/0.1 ML ID ONE ×2 (09:30→11:00)
--- NOTE | 2018-08-03 11:16 | MHIPNPDOC ---
[facility] Progress Note Progress Note DATE OF SERVICE: 08/03/18 HISTORY: Patient is a 53 -year-old , female, with a history of schizoaffective d/o and multiple admissions [facility] last d/c 05/09/18 after 2wk stay who was brought to ED by [employer] that were called by the pt's mother b/c her bother saw her standing on a bridge and place one foot over the railing. [employer] found pt on the the bridge and per ED she told them she was suicidal. When pt arrived to the ED she denied SI/HI and stated "I was just looking at the water." Pt also reported by family to have recently told her that she had saved some money she was planning on leaving him. Pt's family believe that pt is struggling due to loss of job earlier this year causing finances to be limited for [place]. Pt seen and appears improved from last admission especially regarding anxiety and psychosis. Does appear very flat but she states she feels good although notices that her emotions are "very mellow." States her family are concerned and they are considering changing her to abilify aristada outpatient due to it. Pt has tried abilify in the past which has shown to not be beneficial for dunia/psychosis so would not recommend this but rather a decrease in her invega sustenna monthly dose to 156mg which pt agrees may be beneficial as she does feel her current med is beneficial. Denies depression and anxiety and states that supervisor solder making asked her about when she was last suicidal and she told them of time prior to her last admission. Denies current SI/HI and again states she was just trying to look at the water in the park. States her family watch her every move which she finds annoying. States she saved money to help her with bills no as an inheritance. States her got a new job and finances have been better. Agreeable to trying zoloft in conjunction with invega sustenna to see if combination beneficial for mood, flat affect, depression. Denies SI/HI, hallucinations, delusions. Feels safe here. VITAL SIGNS: See below. NEW TEST RESULTS: See below. CURRENT MEDICATIONS: See below. MENTAL STATUS EXAMINATION: General Appearance: unkempt, disheveled, appears stated age, hospital scrubs/clothing Build: average Demeanor: average, guarded Eye Contact: average Activity: average Behavior: cooperative Speech: clear, spontaneous, normal volume, reg/rate,rhythm,volume Mood: flat with anhedonia, avolition Mood "ok" Affect: constricted, flat, incongruent Thought Process: logical/linear, concrete, depressed, intact Thought Content (Delusions): none reported, very unreliable denial of suicide as behavior, history, and affect indicate someone at high risk of suicide Thought Content (Other): guarded Thought Content (Aggressive): none reported Perception (Hallucinations): none reported Perception (Other): none reported Cognition (Impairment of): none reported Cognition(Intelligence Est.): average Oriented: Awake, Alert, Oriented times three Insight: poor Judgment: Poor Psychosis: Denies DIAGNOSES: Schizoaffective d/o - depressed Generalized Anxiety D/o ASSESSMENT:Roughly no change from from wednesday. Continues to isolate in bed with severe avolition, very poor self care, very flat affect with psychomotor retardation. Started on seroquel for insomnia/mood but states she isn't sleeping even though saw pt really early in am prior to interview sleeping in bed. Her insight and judgement are very poor and completely compromised due to her current psychiatric state. Continues to exhibit anhedonia/avolition. Appears worse. States she's tolerating effexor xr but doesn't notice anything much from taking med yet. Denies side effects. Encouraged to walk milieu, socialize in day room, and attend groups during the day to prevent her from laying in bed sleeping during the day out of boredom and to improve mood. Moods remains predominately flat with anhedonia and avolition. Continues to endorse anhedonia she believes is due to invega which I agree and would recomment invega sustenna 156mg im for her next administration to see if it improves pt's flat affect. Continues to deny SI, but has been engaging in possibly risky behavior ("stepping over bridge railing to see water, sitting on window sill to get air") and believes her family don't trust her and are way to concerned for her, will always believe she is a risk to herself. Pt is a high risk of suicide given current symptoms of anhedonia, avolition, disinterest, helplessness, refusing to attend groups routinely, poor self care, in bed all day sleeping or staring at wall, very flat affect, behavior incongruent with denial of suicide and history indicate pt at high risk of either impulsive or planned suicide as if she's chapis ng she will get a moment by herself to actually do it. Seems to want to leave to just be alone and possible commit suicide. 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 Medications: invega sustenna 234mg im 07/08/18 effexor xr 225mg for mood Seroquel 50mg qhs invega sustenna 156mg im on 08/08/18 TIME SPENT: 30 minutes. Vital Signs Vital Signs Date Time Temp Pulse Resp B/P (MAP) Pulse Ox O2 Delivery O2 Flow Rate FiO2 08/03/18 07:00 98.7 106 18 108/70 (83) 07/28/18 06:53 Room Air Laboratory Data 24H Labs Laboratory Tests 2 08/02/18 15:12: Total Creatine Kinase 60, Creatine Kinase MB < 1.0, Creatine Kinase MB Relative Index 1.67, Troponin I < 0.02 Current Medications Current Medications Acetaminophen (Tylenol Tab) 650 mg Q6HP PRN PO HEADACHE or DISCOMFORT; Start 07/20/18 at 20:30 Al Hydrox/Mg Hydrox/Simethicone (Mylanta) 30 ml Q4HP PRN PO HEARTBURN/INDIGESTION; Start 07/20/18 at 20:30 Aripiprazole (AbiLIFY) 2 mg QHS PO Last administered on 07/20/18at 21:00; Start 07/20/18 at 21:00; Stop 07/21/18 at 11:22; Status DC Docusate Sodium (Colace) 100 mg BID PO Last administered on 08/03/18at 09:25; Start 08/01/18 at 09:00 Home Med (Med Rec Complete!) ASDIRECTED XX ; Start 07/20/18 at 19:45; Stop 07/20/18 at 19:45; Status DC Hydroxyzine HCl (Atarax) 50 mg Q6HP PRN PO ANXIETY/AGITATION Last administered on 08/02/18at 20:13; Start 07/23/18 at 14:15 Levothyroxine Sodium (Synthroid) 88 mcg DAILY@0600 PO Last administered on 08/03/18 06:18; Start 07/21/18 at 06:00 Loratadine (Claritin) 5 mg DAILY PO Last administered on 08/03/18 09:25; Start 07/23/18 at 09:00 Lorazepam (Ativan) 1 mg STAT STAT PO Last administered on 07/20/18at 19:34; Start 07/20/18 at 19:34; Stop 07/20/18 at 19:35; Status DC Magnesium Hydroxide (Milk Of Magnesia) 30 ml DAILYPRN PRN PO CONSTIPATION Last administered on 07/31/18at 09:50; Start 07/20/18 at 20:30 Non-Formulary Medication ( See Comment Field Below ) SEE COMMENTS SECTION 1T@10 XX ; Start 08/05/18 at 10:00; Stop 08/05/18 at 10:00; Status DC Non-Formulary Medication ( See Comment Field Below ) SEE LABEL COMMENTS DAILY XX ; Start 08/03/18 at 09:00; Stop 08/03/18 at 10:36; Status DC Nystatin (Mycostatin Powder, Nystop) BID TOP Last administered on 08/02/18at 08:58; Start 07/27/18 at 09:00 Quetiapine Fumarate (SEROquel) 50 mg QHS PO Last administered on 08/02/18at 20:13; Start 08/01/18 at 21:00 Sertraline HCl (Zoloft) 25 mg QHS PO Last administered on 07/24/18at 20:48; Start 07/20/18 at 21:00; Stop 07/25/18 at 10:43; Status DC Trazodone HCl (Desyrel) 50 mg QHSP PRN PO INSOMNIA Last administered on 07/24/18at 20:48; Start 07/20/18 at 20:30 Venlafaxine HCl (Effexor Xr) 75 mg DAILY PO Last administered on 07/27/18at 09:16; Start 07/25/18 at 09:00; Stop 07/27/18 at 10:28; Status DC Venlafaxine HCl (Effexor Xr) 150 mg DAILY PO Last administered on 08/01/18at 08:45; Start 07/28/18 at 09:00; Stop 08/01/18 at 09:05; Status DC Venlafaxine HCl (Effexor Xr) 225 mg DAILY PO Last administered on 08/03/18at 09:25; Start 08/02/18 at 09:00 Allergies Coded Allergies: Latex (Verified Allergy, Unknown, ?, 04/04/14) RADHA HARP DO Aug 03, 2018 11:16 am
--- NOTE | 2018-08-03 15:00 | MHIPN ---
DATE: 08/02/2018 The patient was evaluated at the request of staff nurse as the patient complained of some breathing difficulty. I evaluated the patient. PHYSICAL EXAMINATION: CARDIOVASCULAR: Heart sounds were heard. No murmurs. RESPIRATORY: Breath sounds normal. No crepitations. No rhonchi. No chest tenderness. Breathing normally. CONSTITUTIONAL: No sweating. No fever. VITAL SIGNS: Temperature 97, pulse 100, respiratory rate 12, blood pressure 96/62. ASSESSMENT AND PLAN: Difficulty breathing. The plan is to get an EKG, get creatine phosphokinase (CPK) and troponin I levels, and I spoke to the casing runner who is going to come and examine the patient.
[2018-08-03] MEDS: hydrOXYzine 50 MG TAB PO PRN (17:17)
[2018-08-03 18:00] VITALS: BP 117/72
[2018-08-03] MEDS: QUEtiapine FUMARATE 50 MG TAB PO SCH (21:12)
[2018-08-04] MEDS: LEVOTHYROXINE 88MCG TABLET (0.088 MG) PO SCH (06:14)
[2018-08-04 06:23] VITALS: BP 130/77
[2018-08-04 08:10] VITALS: BP 106/64
[2018-08-04] MEDS: NYSTATIN 100,000 UNITS/GM TOPICAL PWD 15 GM TOP SCH ×2 (08:21→21:00)
[2018-08-04] MEDS: hydrOXYzine 50 MG TAB PO PRN (08:21)
[2018-08-04] MEDS: VENLAFAXINE **XR** 75MG CAPSULE PO SCH (08:21)
[2018-08-04] MEDS: DOCUSATE SODIUM 100 MG CAP PO SCH ×2 (08:21→21:38)
[2018-08-04] MEDS: LORATADINE 5 MG HALF-TAB PO SCH (08:21)
--- NOTE | 2018-08-04 08:46 | MHIPNPDOC ---
[facility] Progress Note Progress Note DATE OF SERVICE: 08/04/18 HISTORY:Patient is a 53 -year-old , female, with a history of schizoaffective d/o and multiple admissions [facility] last d/c 05/09/18 after 2wk stay who was brought to ED by [employer] that were called by the pt's mother b/c her bother saw her standing on a bridge and place one foot over the railing. [employer] found pt on the the bridge and per ED she told them she was suicidal. When pt arrived to the ED she denied SI/HI and stated "I was just looking at the water." Pt also reported by family to have recently told her that she had saved some money she was planning on leaving him. Pt's family believe that pt is struggling due to loss of job earlier this year causing finances to be limited for [place]. Pt seen and appears improved from last admission especially regarding anxiety and psychosis. Does appear very flat but she states she feels good although notices that her emotions are "very mellow." States her family are concerned and they are considering changing her to abilify aristada outpatient due to it. Pt has tried abilify in the past which has shown to not be beneficial for dunia/psychosis so would not recommend this but rather a decrease in her invega sustenna monthly dose to 156mg which pt agrees may be beneficial as she does feel her current med is beneficial. Denies depression and anxiety and states that chief operator hydroformer asked her about when she was last suicidal and she told them of time prior to her last admission. Denies current SI/HI and again states she was just trying to look at the water in the park. States her family watch her every move which she finds annoying. States she saved money to help her with bills no as an inheritance. States her got a new job and finances have been better. Agreeable to trying zoloft in conjunction with invega sustenna to see if combination beneficial for mood, flat affect, depression. Denies SI/HI, hallucinations, delusions. Feels safe here. VITAL SIGNS: See below. NEW TEST RESULTS: See below. CURRENT MEDICATIONS: See below. MENTAL STATUS EXAMINATION: General Appearance: more unkempt, disheveled, appears stated age, hospital scrubs/clothing Build: average Demeanor: anhedonic, lack of motivation, flat, guarded Eye Contact: fair Activity: psychomotor retardation, lack of motivating is severe, slow, non- spontaneous Behavior: cooperative Speech: clear, spontaneous, low volume, reg/rate,rhythm Mood: flat with anhedonia, avolition Mood "ok" Affect: constricted, flat, incongruent Thought Process: non-spontaneous, concrete, depressed Thought Content (Delusions): none reported, very unreliable denial of suicide as behavior, history, and affect indicate someone at high risk of suicide Thought Content (Other): guarded Thought Content (Aggressive): none reported Perception (Hallucinations): none reported Perception (Other): none reported Cognition (Impairment of): none reported Cognition(Intelligence Est.): average Oriented: Awake, Alert, Oriented times three Insight: poor extremely Judgment: Poor extremely Psychosis: Denies DIAGNOSES: Schizoaffective d/o - depressed Generalized Anxiety D/o ASSESSMENT:Roughly no change from from yesterday. Continues to isolate in bed with severe avolition, very poor self care, very flat affect with psychomotor retardation. Asked what she did yesterday and stated "walked the halls" and admits didn't attend any groups and was in bed most of the day staring at [place]. Started on seroquel for insomnia/mood but states she isn't sleeping even though saw pt really early in am prior to interview sleeping in bed. Her insight and judgement are very poor and completely compromised due to her current psychiatric state. Continues to exhibit anhedonia/avolition. Appears worse. States she's tolerating effexor xr but doesn't notice anything much from taking med yet. Denies side effects. Will increase today. Encouraged to walk milieu, socialize in day room, and attend groups during the day to prevent her from laying in bed sleeping during the day out of boredom and to improve mood. Moods remains predominately flat with anhedonia and avolition. Continues to endorse anhedonia she believes is due to invega which I agree and would recommend invega sustenna 156mg im for her next administration to see if it improves pt's flat affect. Continues to deny SI, but has been engaging in possibly risky behavior ("stepping over bridge railing to see water, sitting on window sill to get air") and believes her family don't trust her and are way to concerned for her, will always believe she is a risk to herself. Pt is a high risk of suicide given current symptoms of anhedonia, avolition, disinterest, helplessness, refusing to attend groups routinely, poor self care, in bed all day sleeping or staring at wall, very flat affect, behavior incongruent with denial of suicide and history indicate pt at high risk of either impulsive or planned suicide as if she's hoping she will get a moment by herself to actually do it. Seems to want to leave to just be alone and possible commit suicide. Will attempt wellbutrin for severe depression on wednesday to see if will increase benefit of effexor xr and mood/motivation/etc. Will try remeron in future for insomnia or increase seroquel and determine if either/or beneficial based on effectiveness and tolerance. Plan to give invega sustenna 156mh Wednesday. MANAGEMENT PLAN: due to lack of improvement and very severe avolition/anhedonia/psychomotor retardation/impulsiveness SI and suicidal gestures will recommend transfer ECT in [place] and pt not responding to psychopharmacologic meds. Medications: invega sustenna 234mg im 07/08/18 effexor xr 300mg for mood Seroquel 50mg qhs invega sustenna 156mg im on 08/08/18 TIME SPENT: 30 minutes. Vital Signs Vital Signs Date Time Temp Pulse Resp B/P (MAP) Pulse Ox O2 Delivery O2 Flow Rate FiO2 08/04/18 06:23 97.5 102 14 130/77 (94) Room Air 08/03/18 18:00 97 Current Medications Current Medications Acetaminophen (Tylenol Tab) 650 mg Q6HP PRN PO HEADACHE or DISCOMFORT; Start 07/20/18 at 20:30 Al Hydrox/Mg Hydrox/Simethicone (Mylanta) 30 ml Q4HP PRN PO HEARTBURN/INDIGESTION; Start 07/20/18 at 20:30 Aripiprazole (AbiLIFY) 2 mg QHS PO Last administered on 07/20/18at 21:00; Start 07/20/18 at 21:00; Stop 07/21/18 at 11:22; Status DC Docusate Sodium (Colace) 100 mg BID PO Last administered on 08/04/18at 08:21; Start 08/01/18 at 09:00 Home Med (Med Rec Complete!) ASDIRECTED XX ; Start 07/20/18 at 19:45; Stop 07/20/18 at 19:45; Status DC Hydroxyzine HCl (Atarax) 50 mg Q6HP PRN PO ANXIETY/AGITATION Last administered on 08/04/18 08:21; Start 07/23/18 at 14:15 Levothyroxine Sodium (Synthroid) 88 mcg DAILY@0600 PO Last administered on 08/04/18 06:14; Start 07/21/18 at 06:00 Loratadine (Claritin) 5 mg DAILY PO Last administered on 08/04/18 08:21; Start 07/23/18 at 09:00 Lorazepam (Ativan) 1 mg STAT STAT PO Last administered on 07/20/18at 19:34; Start 07/20/18 at 19:34; Stop 07/20/18 at 19:35; Status DC Magnesium Hydroxide (Milk Of Magnesia) 30 ml DAILYPRN PRN PO CONSTIPATION Last administered on 07/31/18at 09:50; Start 07/20/18 at 20:30 Non-Formulary Medication ( See Comment Field Below ) SEE COMMENTS SECTION 1T@10 XX ; Start 08/05/18 at 10:00; Stop 08/05/18 at 10:00; Status DC Non-Formulary Medication ( See Comment Field Below ) SEE LABEL COMMENTS DAILY XX ; Start 08/03/18 at 09:00; Stop 08/03/18 at 10:36; Status DC Nystatin (Mycostatin Powder, Nystop) BID TOP Last administered on 08/02/18at 08:58; Start 07/27/18 at 09:00 Quetiapine Fumarate (SEROquel) 50 mg QHS PO Last administered on 08/03/18at 21:12; Start 08/01/18 at 21:00 Sertraline HCl (Zoloft) 25 mg QHS PO Last administered on 07/24/18at 20:48; Start 07/20/18 at 21:00; Stop 07/25/18 at 10:43; Status DC Trazodone HCl (Desyrel) 50 mg QHSP PRN PO INSOMNIA Last administered on 07/24/18at 20:48; Start 07/20/18 at 20:30 Venlafaxine HCl (Effexor Xr) 75 mg DAILY PO Last administered on 07/27/18at 09:16; Start 07/25/18 at 09:00; Stop 07/27/18 at 10:28; Status DC Venlafaxine HCl (Effexor Xr) 150 mg DAILY PO Last administered on 08/01/18at 08:45; Start 07/28/18 at 09:00; Stop 08/01/18 at 09:05; Status DC Venlafaxine HCl (Effexor Xr) 225 mg DAILY PO Last administered on 08/04/18at 08:21; Start 08/02/18 at 09:00 Allergies Coded Allergies: Latex (Verified Allergy, Unknown, ?, 04/04/14) RADHA HARP DO Aug 04, 2018 8:46 am
[2018-08-04 18:00] VITALS: BP 127/69
[2018-08-04] MEDS: QUEtiapine FUMARATE 50 MG TAB PO SCH (21:38)
[2018-08-05] MEDS: LEVOTHYROXINE 88MCG TABLET (0.088 MG) PO SCH (06:10)
[2018-08-05 06:32] VITALS: BP 120/81
[2018-08-05] MEDS: NYSTATIN 100,000 UNITS/GM TOPICAL PWD 15 GM TOP SCH ×2 (09:00→21:00)
[2018-08-05] MEDS: DOCUSATE SODIUM 100 MG CAP PO SCH ×2 (09:05→21:55)
[2018-08-05] MEDS: VENLAFAXINE **XR** 75MG CAPSULE PO SCH (09:06)
[2018-08-05] MEDS: LORATADINE 5 MG HALF-TAB PO SCH (09:06)
--- NOTE | 2018-08-05 09:30 | MHIPNPDOC ---
[facility] Progress Note Progress Note DATE OF SERVICE: 08/05/18 HISTORY: Patient is a 53 -year-old , female, with a history of schizoaffective d/o and multiple admissions [facility] last d/c 05/09/18 after 2wk stay who was brought to ED by [employer] that were called by the pt's mother b/c her bother saw her standing on a bridge and place one foot over the railing. [employer] found pt on the the bridge and per ED she told them she was suicidal. When pt arrived to the ED she denied SI/HI and stated "I was just looking at the water." Pt also reported by family to have recently told her that she had saved some money she was planning on leaving him. Pt's family believe that pt is struggling due to loss of job earlier this year causing finances to be limited for [place]. Pt seen and appears improved from last admission especially regarding anxiety and psychosis. Does appear very flat but she states she feels good although notices that her emotions are "very mellow." States her family are concerned and they are considering changing her to abilify aristada outpatient due to it. Pt has tried abilify in the past which has shown to not be beneficial for dunia/psychosis so would not recommend this but rather a decrease in her invega sustenna monthly dose to 156mg which pt agrees may be beneficial as she does feel her current med is beneficial. Denies depression and anxiety and states that miner asked her about when she was last suicidal and she told them of time prior to her last admission. Denies current SI/HI and again states she was just trying to look at the water in the park. States her family watch her every move which she finds annoying. States she saved money to help her with bills no as an inheritance. States her got a new job and finances have been better. Agreeable to trying zoloft in conjunction with invega sustenna to see if combination beneficial for mood, flat affect, depression. Denies SI/HI, hallucinations, delusions. Feels safe here. VITAL SIGNS: See below. NEW TEST RESULTS: See below. CURRENT MEDICATIONS: See below. MENTAL STATUS EXAMINATION: General Appearance: showered, appears stated age, hospital scrubs/clothing Build: average Demeanor: more cooperative and engaged in treatment Eye Contact: fair Activity: improved psychomotor retardation Behavior: cooperative Speech: clear, non-spontaneous, low volume, reg/rate,rhythm Mood: less flat with less anhedonia and avolition Mood "ok" Affect: less constricted and flat, incongruent Thought Process: non-spontaneous, concrete, improved depression Thought Content (Delusions): none reported, history of impulsive SA Thought Content (Other): guarded Thought Content (Aggressive): none reported Perception (Hallucinations): none reported Perception (Other): none reported Cognition (Impairment of): none reported Cognition(Intelligence Est.): average Oriented: Awake, Alert, Oriented times three Insight: poor extremely Judgment: Poor extremely Psychosis: Denies DIAGNOSES: Schizoaffective d/o - depressed Generalized Anxiety D/o ASSESSMENT:Pt up this am and walking halls. Pt showered this am with a lot of support per nursing. Pt states she did attend groups yesterday after locked out of her room. She appears to have more affect and motivation with room restriction and increase in Effexor. States she feels the effexor xr increase is beneficial as she feels more motivated during the day after increase. Advised that if she continues her current status she may possible go home Wednesday. States she's tolerating effexor xr but doesn't notice anything much from taking med yet. Denies side effects. Will increase today. As Noted Previously "Continues to deny SI, but has been engaging in possibly risky behavior ("stepping over bridge railing to see water, sitting on window sill to get air") and believes her family don't trust her and are way to concerned for her, will always believe she is a risk to herself. Pt is a high risk of suicide given current symptoms of anhedonia, avolition, disinterest, helplessness, refusing to attend groups routinely, poor self care, in bed all day sleeping or staring at wall, very flat affect, behavior incongruent with denial of suicide and history indicate pt at high risk of either impulsive or planned suicide as if she's hoping she will get a moment by herself to actually do it. Will attempt wellbutrin for severe depression on wednesday to see if will increase benefit of effexor xr and mood/motivation/etc. Will try remeron in future for insomnia or increase seroquel and determine if either/or beneficial based on effectiveness and tolerance." MANAGEMENT PLAN: pt improved and could be product of invega sustenna clearing from system and increase in effexor xr. Will consider not administering invega sustenna wednesday if current status continues. Medications: invega sustenna 234mg im 07/08/18 effexor xr 300mg for mood Seroquel 50mg qhs invega sustenna 156mg im on 08/08/18 TIME SPENT: 30 minutes. Vital Signs Vital Signs Date Time Temp Pulse Resp B/P (MAP) Pulse Ox O2 Delivery O2 Flow Rate FiO2 08/05/18 06:32 98.0 112 16 120/81 (94) Room Air 08/04/18 18:00 97 Current Medications Current Medications Acetaminophen (Tylenol Tab) 650 mg Q6HP PRN PO HEADACHE or DISCOMFORT; Start 07/20/18 at 20:30 Al Hydrox/Mg Hydrox/Simethicone (Mylanta) 30 ml Q4HP PRN PO HEARTBURN/INDIGESTION; Start 07/20/18 at 20:30 Aripiprazole (AbiLIFY) 2 mg QHS PO Last administered on 07/20/18at 21:00; Start 07/20/18 at 21:00; Stop 07/21/18 at 11:22; Status DC Docusate Sodium (Colace) 100 mg BID PO Last administered on 08/05/18 09:05; Start 08/01/18 at 09:00 Home Med (Med Rec Complete!) ASDIRECTED XX ; Start 07/20/18 at 19:45; Stop 07/20/18 at 19:45; Status DC Hydroxyzine HCl (Atarax) 50 mg Q6HP PRN PO ANXIETY/AGITATION Last administered on 08/04/18 08:21; Start 07/23/18 at 14:15 Levothyroxine Sodium (Synthroid) 88 mcg DAILY@0600 PO Last administered on 08/05/18 06:10; Start 07/21/18 at 06:00 Loratadine (Claritin) 5 mg DAILY PO Last administered on 08/05/18 09:06; Start 07/23/18 at 09:00 Lorazepam (Ativan) 1 mg STAT STAT PO Last administered on 07/20/18at 19:34; Start 07/20/18 at 19:34; Stop 07/20/18 at 19:35; Status DC Magnesium Hydroxide (Milk Of Magnesia) 30 ml DAILYPRN PRN PO CONSTIPATION Last administered on 07/31/18at 09:50; Start 07/20/18 at 20:30 Non-Formulary Medication ( See Comment Field Below ) SEE COMMENTS SECTION 1T@10 XX ; Start 08/05/18 at 10:00; Stop 08/05/18 at 10:00; Status DC Non-Formulary Medication ( See Comment Field Below ) SEE LABEL COMMENTS DAILY XX ; Start 08/03/18 at 09:00; Stop 08/03/18 at 10:36; Status DC Nystatin (Mycostatin Powder, Nystop) BID TOP Last administered on 08/02/18at 08:58; Start 07/27/18 at 09:00 Quetiapine Fumarate (SEROquel) 50 mg QHS PO Last administered on 08/04/18at 21:38; Start 08/01/18 at 21:00 Sertraline HCl (Zoloft) 25 mg QHS PO Last administered on 07/24/18at 20:48; Start 07/20/18 at 21:00; Stop 07/25/18 at 10:43; Status DC Trazodone HCl (Desyrel) 50 mg QHSP PRN PO INSOMNIA Last administered on at 20:48; Start 07/20/18 at 20:30 Venlafaxine HCl (Effexor Xr) 75 mg DAILY PO Last administered on 07/27/18at 09:16; Start 07/25/18 at 09:00; Stop 07/27/18 at 10:28; Status DC Venlafaxine HCl (Effexor Xr) 150 mg DAILY PO Last administered on 08/01/18at 08:45; Start 07/28/18 at 09:00; Stop 08/01/18 at 09:05; Status DC Venlafaxine HCl (Effexor Xr) 225 mg DAILY PO Last administered on 08/04/18at 08:21; Start 08/02/18 at 09:00; Stop 08/04/18 at 08:47; Status DC Venlafaxine HCl (Effexor Xr) 300 mg DAILY PO Last administered on 08/05/18at 09:06; Start 08/05/18 at 09:00 Allergies Coded Allergies: Latex (Verified Allergy, Unknown, ?, 04/04/14) RADHA HARP DO Aug 05, 2018 9:30 am
[2018-08-05] MEDS ORDERED: PPD DOCUMENTATION ENTRY MISC XX SCH (10:00)
[2018-08-05] MEDS ORDERED: PPD DOCUMENTATION ENTRY MISC XX ONE (11:00)
[2018-08-05 18:00] VITALS: BP 128/88
[2018-08-05] MEDS: QUEtiapine FUMARATE 50 MG TAB PO SCH (21:55)
[2018-08-06] MEDS: LEVOTHYROXINE 88MCG TABLET (0.088 MG) PO SCH (06:13)
[2018-08-06 06:45] VITALS: BP 113/69
[2018-08-06] MEDS: DOCUSATE SODIUM 100 MG CAP PO SCH ×2 (08:29→21:00)
[2018-08-06] MEDS: LORATADINE 5 MG HALF-TAB PO SCH (08:30)
[2018-08-06] MEDS: NYSTATIN 100,000 UNITS/GM TOPICAL PWD 15 GM TOP SCH ×2 (08:30→21:00)
[2018-08-06] MEDS: VENLAFAXINE **XR** 75MG CAPSULE PO SCH (08:30)
[2018-08-06 18:18] VITALS: BP 123/74
[2018-08-06] MEDS: QUEtiapine FUMARATE 50 MG TAB PO SCH (21:59)
[2018-08-07] MEDS: LEVOTHYROXINE 88MCG TABLET (0.088 MG) PO SCH (05:59)
[2018-08-07 06:44] VITALS: BP 121/70
[2018-08-07] MEDS: NYSTATIN 100,000 UNITS/GM TOPICAL PWD 15 GM TOP SCH ×2 (09:00→21:00)
[2018-08-07] MEDS: VENLAFAXINE **XR** 75MG CAPSULE PO SCH (09:27)
[2018-08-07] MEDS: LORATADINE 5 MG HALF-TAB PO SCH (09:27)
[2018-08-07] MEDS: DOCUSATE SODIUM 100 MG CAP PO SCH ×2 (09:27→21:41)
[2018-08-07 18:00] VITALS: BP 112/80
[2018-08-07] MEDS: QUEtiapine FUMARATE 50 MG TAB PO SCH (21:41)
[2018-08-08 06:21] VITALS: BP 107/70
[2018-08-08] MEDS: LEVOTHYROXINE 88MCG TABLET (0.088 MG) PO SCH (06:38)
[2018-08-08] MEDS: NYSTATIN 100,000 UNITS/GM TOPICAL PWD 15 GM TOP SCH (09:00)
[2018-08-08] MEDS: LORATADINE 5 MG HALF-TAB PO SCH (09:36)
[2018-08-08] MEDS: VENLAFAXINE **XR** 75MG CAPSULE PO SCH (09:36)
[2018-08-08] MEDS: DOCUSATE SODIUM 100 MG CAP PO SCH (09:36)
--- NOTE | 2018-08-08 09:59 | MHDSPDOC ---
[facility] Discharge Summary Discharge Summary DATE OF ADMISSION: Jul 20, 2018 at 8:23 pm DATE OF DISCHARGE: Aug 10, 2018 DISCHARGE DIAGNOSES: Schizoaffective d/o - depressed Generalized Anxiety D/o REASON FOR ADMISSION: Patient is a 53 -year-old , female, with a history of schizoaffective d/o and multiple admissions [facility] last d/c 05/09/18 after 2wk stay who was brought to ED by [employer] that were called by the pt's mother b/c her bother saw her standing on a bridge and place one foot over the railing. [employer] found pt on the the bridge and per ED she told them she was suicidal. When pt arrived to the ED she denied SI/HI and stated "I was just looking at the water." Pt also reported by family to have recently told her that she had saved some money she was planning on leaving him. Pt's family believe that pt is struggling due to loss of job earlier this year causing finances to be limited for [place]. Pt seen and appears improved from last admission especially regarding anxiety and psychosis. Does appear very flat but she states she feels good although notices that her emotions are "very mellow." States her family are concerned and they are considering changing her to abilify aristada outpatient due to it. Pt has tried abilify in the past which has shown to not be beneficial for dunia/psychosis so would not recommend this but rather a decrease in her invega sustenna monthly dose to 156mg which pt agrees may be beneficial as she does feel her current med is beneficial. Denies depression and anxiety and states that pst supervisor asked her about when she was last suicidal and she told them of time prior to her last admission. Denies current SI/HI and again states she was just trying to look at the water in the park. States her family watch her every move which she finds annoying. States she saved money to help her with bills no as an inheritance. States her got a new job and finances have been better. Agreeable to trying zoloft in conjunction with invega sustenna to see if combination beneficial for mood, flat affect, depression. Denies SI/HI, hallucinations, delusions. Feels safe here. CONSULTANTS INVOLVED: medicine TREATMENT AND PROGRESS ON THE UNIT : Pt was admitted to [facility], seen for psychia tric assessment and her outpatient zoloft was discontinued as appeared ineffective for pt and she was started on effexor xr progressively increased to 300mg daily for mood and anxiety that she tolerating well and felt was beneficial. Her invega sustenna was discontinued as appeared to be causing pt symptoms of avolition and psychomotor retardation that improved with no use of drug. She was started on seroquel 50mg qhs for mood. Pt found her medications beneficial and tolerated them well. Pt at first failed to attend groups or her own self care but after pt locked outof her room she began taking care of her hygiene, socializing in the [place] and attending groups which was all beneficial for the patient's overall status. Her symptoms of psychomotor retardation, avolition, and anhedonia improved greatly with treatment. On day of discharge she denied depression, anxiety, insomnia, SI/HI, hallucinations, delusions. She was discharged home after family meeting with her parents and with follow-up at [facility]. She felt safe for discharge. DISCHARGE ASSESSMENT: Pt up this am and walking halls, attending groups daily. Pt showered this am on her own without nursing support. She no longer appears to be suffering from psychomotor retardation, anhedonia, avolition as symptoms are greatly improved. She is tolerating effexor xr and finding it beneficial and it appears beneficial for her based on symptom improvement. Will d/c outpatient invega sustenna as appears to have been causing psychomotor retardation in pt as without drug pt's symptoms have improved greatly. She denies depression, anxiety, insomnia, SI/HI, hallucinations, delusions. She feels safe to be discharged home with her family. MENTAL STATUS EXAMINATION ON DISCHARGE: General Appearance: showered, appears stated age, hospital scrubs/clothing Build: average Demeanor: cooperative and engaged in treatment Eye Contact: good Activity: average Behavior: cooperative Speech: clear, non-spontaneous, low volume, reg/rate,rhythm Mood: euthymic, full range, motivated Mood "good" Affect: euthymic, full range, motivated Thought Process: linear, logical, motivated Thought Content (Other): denies si/hi, avh Thought Content (Aggressive): none reported Perception (Hallucinations): none reported Perception (Other): none reported Cognition (Impairment of): none reported Cognition(Intelligence Est.): average Oriented: Awake, Alert, Oriented times three Insight: fair-good Judgment: fair-good Psychosis: Denies MEDICATIONS ON DISCHARGE: effexor xr 300mg for mood Seroquel 50mg qhs PLAN/FOLLOWUP ARRANGEMENTS: D/c home with follow-up at [facility]. The amount of time spent in the coordination of care for this patient was approximately 30 minutes. Vital Signs/I&Os Vital Signs Date Time Temp Pulse Resp B/P (MAP) Pulse Ox O2 Delivery O2 Flow Rate FiO2 08/08/18 06:21 98.0 100 12 107/70 (82) 08/05/18 06:32 Room Air 08/04/18 18:00 97 Medications Scheduled Levothyroxine Sodium (Synthroid) 88 Mcg Tab, 88 MCG PO DAILY, (Reported) Paliperidone Palmitate (Invega Sustenna) 234 Mg/1.5 Ml Inj, 234 MG IM QMONTH, (Reported) Allergies Coded Allergies: Latex (Verified Allergy, Unknown, ?, 04/04/14) RADHA HARP DO Aug 08, 2018 9:59 am
[2018-08-08] MEDS ORDERED: QUET5TAB PO (10:02)
[2018-08-08] MEDS ORDERED: HYDRO50TAB PO (10:02)
[2018-08-08] MEDS ORDERED: EFFE150C2 PO (10:02)
== END 2018-08-08 13:55 | disposition home or self-care (01) | DRG 750 ==
LOC: M ED 16:31 → M ED INP 20:23 → M PSY 22:30
PROVIDERS: ADMIT Psychiatry & Neurology Psychiatry; ATTEND Psychiatry & Neurology Psychiatry
DX: F25.1 Schizoaffective disorder, depressive type (principal); R45.851 Suicidal ideations; F41.1 Generalized anxiety disorder; Z91.040 Latex allergy status; Z79.899 Other long term (current) drug therapy; E03.9 Hypothyroidism, unspecified; J30.9 Allergic rhinitis, unspecified; M54.5 Low back pain; G47.00 Insomnia, unspecified

== ENCOUNTER 2019-01-05 14:43 | Emergency (ER) | payer BC ==
[~2019-01-05] VITALS: Ht 167.6 cm; Wt 77.3 kg
[~2019-01-05 14:43] MED LIST changes: -DULO30CA PO; +DULO30CA9 PO; +EFFE150C2 PO; +HYDRO50TAB PO; +QUET5TAB PO; -SERT25TA PO; +SERT25TA85 PO; +TIRO88CA3 PO; +TRAZ1TAB10 PO; -TRAZO50TA PO; -[UNRECOGNIZED DRUG - CODE] PO
[2019-01-05 15:23] LABS: HEMATOCRIT 43.3 % (36.0-47.0); MEAN CORPUSCULAR HEMOGLOBIN 30.9 pg (27.0-33.0); MEAN CORPUSCULAR HGB CONC 34.6 g/dl (32.0-36.5); MEAN CORPUSCULAR VOLUME 89.1 fl (80.0-96.0); PLATELET COUNT, AUTOMATED 337 10^3/uL (150-450); RED BLOOD COUNT 4.86 10^6/uL (4.00-5.40); WHITE BLOOD COUNT 19.3 10^3/uL (4.0-10.0)
[2019-01-05 16:48] LABS: ACETAMINOPHEN LEVEL < 2.0 UG/ML (10.0-30.0); ALBUMIN 3.4 GM/DL (3.2-5.2); ALT/SGPT 31 U/L (12-78); BILIRUBIN,DIRECT 0.1 MG/DL (0.0-0.2); BILIRUBIN,TOTAL 0.3 MG/DL (0.2-1.0); BLOOD UREA NITROGEN 19 MG/DL (7-18); CALCIUM LEVEL 8.6 MG/DL (8.5-10.1); CARBON DIOXIDE LEVEL 25 MEQ/L (21-32); CHLORIDE LEVEL 108 MEQ/L (98-107); CREATININE FOR GFR 1.11 MG/DL (0.55-1.30); ETHYL ALCOHOL (ETHANOL) < 0.003 % (0.000-0.010); GLUCOSE, FASTING 119 MG/DL (70-100); POTASSIUM SERUM 3.7 MEQ/L (3.5-5.1); SALICYLATE LEVEL < 1.7 MG/DL (5.0-30.0); SODIUM LEVEL 141 MEQ/L (136-145); TOTAL PROTEIN 6.8 GM/DL (6.4-8.2)
[2019-01-05 17:38] LABS: AMPHETAMINES LEVEL URINE NEGATIVE (NEGATIVE); BARBITURATES URINE NEGATIVE (NEGATIVE); BENZODIAZEPINES URINE NEGATIVE (NEGATIVE); CANNABINOIDS URINE NEGATIVE (NEGATIVE); COCAINE METABOLITE URINE NEGATIVE (NEGATIVE); METHADONE URINE NEGATIVE (NEGATIVE); OPIATES URINE NEGATIVE (NEGATIVE); PHENCYCLIDINE URINE NEGATIVE (NEGATIVE)
--- NOTE | 2019-01-05 18:33 | REP ---
HISTORY: Chest pain. Four views of the right ribs show a subtle cortical irregularity involving the anterior end of the right 10th rib seen on two views. The accompanying frontal view of the chest is within normal limits. IMPRESSION: Possible right 10th rib fracture anteriorly. Electronically Signed by Binh Elizondo DO 01/05/2019 07:46 P
--- NOTE | 2019-01-05 19:10 | REPVR ---
EXAM: CT Chest Without Contrast EXAM DATE/TIME: 01/05/2019 6:55 PM CLINICAL HISTORY: 53 years old, female; Signs and symptoms; Other: Possible rib fracture TECHNIQUE: Imaging protocol: Axial computed tomography images of the chest without intravenous contrast. Coronal and sagittal reformatted images were created and reviewed. 3D rendering: MIP reconstructed images were created and reviewed. Radiation optimization: All CT scans at this facility use at least one of these dose optimization techniques: automated exposure control; mA and/or kV adjustment per patient size (includes targeted exams where dose is matched to clinical indication); or iterative reconstruction. COMPARISON: CR Ribs uni W-PA CHEST ONLY 01/05/2019 5:58 PM FINDINGS: Limited without IV contrast is somewhat limited by motion artifact. No abnormal dilatation of the thoracic aorta. No bulky mediastinal lymphadenopathy. No pleural effusion or pneumothorax. Pulmonary vascular/interstitial pattern does not suggest active pulmonary edema. No suspicious lung mass or air space process. No central endobronchial lesion. Gallbladder is surgically absent. Multi-level, age-related thoracic degenerative disc disease is present. Nondisplaced fractures involving the right seventh rib laterally and the right 10th rib anterolaterally IMPRESSION: Subtle acute nondisplaced fractures involving the right seventh and 10th ribs, correlating with the area of concern on the radiographs. No intrathoracic sequela Electronically signed by: Igor Martinez On 01/05/2019 19:10:03 PM
--- NOTE | 2019-01-05 20:39 | REPVR ---
EXAM: CT Head Without Contrast EXAM DATE/TIME: 01/05/2019 8:21 PM CLINICAL HISTORY: 53 years old, female; Injury or trauma; Fall; Initial encounter; Blunt trauma (contusions or hematomas); Consciousness not specified; Additional info: Bruising on left frontal region TECHNIQUE: Imaging protocol: Axial computed tomography images of the head without contrast. Radiation optimization: All CT scans at this facility use at least one of these dose optimization techniques: automated exposure control; mA and/or kV adjustment per patient size (includes targeted exams where dose is matched to clinical indication); or iterative reconstruction. COMPARISON: CT Head without contrast 04/30/2018 1:39 PM FINDINGS: Brain: No intracranial mass, mass effect or midline shift. No acute intracranial hemorrhage. No CT evidence of acute cortical infarct. Ventricles: Ventricles, cisterns, and sulci are normal in size for age. Bones/joints: No calvarial fracture or destructive process. Sinuses: Imaged paranasal sinuses are clear. Mastoid air cells: Mastoid air cells are normally aerated. Orbits: Imaged orbits are unremarkable. Soft tissues: No focal extracranial soft tissue swelling. IMPRESSION: No acute or concerning focal intracranial abnormality. Electronically signed by: Igor Martinez On 01/05/2019 20:39:25 PM
[2019-01-06] MEDS ORDERED: LEVOTHYROXINE 88MCG TABLET (0.088 MG) PO ONE (07:30)
[2019-01-06] MEDS ORDERED: IBUPROFEN 400 MG TAB PO ONE (07:30)
[2019-01-06 09:31] VITALS: BP 131/72
--- NOTE | 2019-01-07 08:27 | ECGEPIP ---
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
== END 2019-01-06 09:33 | disposition short-term general hospital (02) ==
LOC: M ED 14:43
DX: F06.2 Psychotic disorder with delusions due to known physiological condition (principal); S22.49XA Multiple fractures of ribs, unspecified side, initial encounter for closed fracture; X58.XXXA Exposure to other specified factors, initial encounter; Y92.9 Unspecified place or not applicable; Y93.9 Activity, unspecified; Y99.9 Unspecified external cause status; D72.829 Elevated white blood cell count, unspecified; R00.0 Tachycardia, unspecified; F32.9 Major depressive disorder, single episode, unspecified; F41.9 Anxiety disorder, unspecified; E03.9 Hypothyroidism, unspecified; Z79.899 Other long term (current) drug therapy; Z91.040 Latex allergy status
CPT/HCPCS: 70450; 71101; 71250; 80048; 80076; 80307; 84443; 85027; 93005; 99285; G0480